=== PATIENT | male | born 1950 | race Caucasian/White ===

== ENCOUNTER 2021-05-18 20:55 | Inpatient (IN) | payer MEDICARE ==
[2021-05-18] MEDS ORDERED: Furosemide 40 MG/4 ML VIAL ONE (21:37)
[2021-05-18 21:40] LABS: #Basophils 0.1 10x3/uL (0.0-0.2); #Eosinphils 0.3 10x3/uL (0.0-0.5); #Monocytes 0.5 10x3/uL (0.0-1.1); %Eosinophils 3.5 % (0.0-6.0); %Lymphocytes 10.6 % (18.0-47.0); %Neutrophils 77.8 % (40.0-75.0); Hemoglobin 14.2 g/dL (13.5-17.5); Mean Corpuscular HGB CONC 31.1 g/dL (32.0-36.0); Mean Corpuscular Hemoglobin 25.4 pg (27.0-33.0); Mean Corpuscular Volume 81.9 fl (81.2-95.1); Mean Platelet Volume 9.5 fl (7.4-10.4); Platelet Count 168 10x3/uL (150-450); RBC Distribution Width 19.2 % (11.5-14.5); Red Blood Cell (RBC) Count 5.58 10x6/uL (4.32-5.72); White Blood Cell (WBC) Count 7.7 10x3/uL (3.5-10.5)
[2021-05-18 21:53] LABS: ALT (SGPT) 17 U/L (8-55); AST (SGOT) 15 U/L (5-34); Albumin 3.6 g/dL (3.4-4.8); Alkaline Phosphatase 120 U/L (40-110); Anion Gap 16 mmol/L (10-20); BUN (Urea Nitrogen) 25 mg/dL (8.4-25.7); Bilirubin, Total 0.8 mg/dL (0.2-1.2); Calc. Creatinine Clearance 0 mL/min (70-130); Calcium 8.8 mg/dL (7.8-10.44); Carbon Dioxide 28 mmol/L (23-31); Chloride 98 mmol/L (98-107); Globulin 3.2 g/dL (2.4-3.5); Glucose 217 mg/dL (80-115); Potassium 3.8 mmol/L (3.5-5.1); Protein, Total 6.8 g/dL (5.8-8.1); Sodium 138 mmol/L (136-145)
[2021-05-19] MEDS ORDERED: Dextrose 5% in Water 1,000 ML IV PRN (02:51)
[2021-05-19] MEDS ORDERED: HumaLOG 300 UNITS/3 ML VIAL SC PRN (02:51)
[2021-05-19] MEDS ORDERED: Dextrose 50% Abboject 50 ML SYRINGE SLOW IVP PRN (02:51)
[2021-05-19 03:16] LABS: #Basophils 0.1 10x3/uL (0.0-0.2); #Eosinphils 0.3 10x3/uL (0.0-0.5); #Monocytes 0.6 10x3/uL (0.0-1.1); %Basophils 1.3 % (0.0-2.0); %Eosinophils 4.6 % (0.0-6.0); %Lymphocytes 13.5 % (18.0-47.0); %Monocytes 8.4 % (0.0-10.0); %Neutrophils 71.9 % (40.0-75.0); Hemoglobin 13.5 g/dL (13.5-17.5); Mean Corpuscular HGB CONC 31.1 g/dL (32.0-36.0); Mean Corpuscular Hemoglobin 25.5 pg (27.0-33.0); Mean Corpuscular Volume 81.9 fl (81.2-95.1); Mean Platelet Volume 9.9 fl (7.4-10.4); Platelet Count 168 10x3/uL (150-450); RBC Distribution Width 18.8 % (11.5-14.5); White Blood Cell (WBC) Count 6.9 10x3/uL (3.5-10.5)
[2021-05-19 03:27] LABS: Troponin I 0.015 ng/mL (< 0.028)
[2021-05-19 03:28] LABS: Cardiac Risk 3.5 (Less than 4.5); Cholesterol 88 mg/dl (< 200 Desired); HDL Cholesterol 25 mg/dL (>60 Neg Risk); LDL Cholesterol, Calculated 47 mg/dL; Triglycerides 78 mg/dL (Less than 150)
[2021-05-19 04:12] VITALS: BMI 45.6
[2021-05-19] MEDS: Furosemide 40 MG/4 ML VIAL SLOW IVP SCH ×2 (05:50→14:03)
[2021-05-19] MEDS ORDERED: Apixaban 5 MG TAB PO SCH (09:00)
[2021-05-19] MEDS: Aspirin 81 mg Enteric Coated Tablet PO SCH (09:58)
[2021-05-19] MEDS: Spironolactone 25 MG TAB PO SCH (09:58)
[2021-05-19] MEDS: Carvedilol 3.125 MG TAB PO SCH ×2 (09:58→17:34)
[2021-05-19] MEDS: Lisinopril 20 MG TAB PO SCH (09:58)
[2021-05-19] MEDS: metFORMIN 500 MG TAB PO SCH ×3 (10:00→17:46)
[2021-05-19 12:34] LABS: Hemoglobin A1c 7.3 % (4.0-6.0)
[2021-05-19 16:03] LABS: SARS-CoV-2 PCR by NAA Not Detected (NotDetected)
[2021-05-19] MEDS: Atorvastatin Calcium 40 MG TAB PO SCH (21:18)
[2021-05-20 04:49] LABS: #Basophils 0.1 10x3/uL (0.0-0.2); #Eosinphils 0.5 10x3/uL (0.0-0.5); #Monocytes 0.6 10x3/uL (0.0-1.1); #Neutrophils 5.7 10x3/uL (1.5-8.4); %Eosinophils 5.7 % (0.0-6.0); %Lymphocytes 13.7 % (18.0-47.0); %Monocytes 6.9 % (0.0-10.0); %Neutrophils 72.2 % (40.0-75.0); Hemoglobin 13.5 g/dL (13.5-17.5); Mean Corpuscular HGB CONC 30.7 g/dL (32.0-36.0); Mean Corpuscular Hemoglobin 25.6 pg (27.0-33.0); Mean Corpuscular Volume 83.5 fl (81.2-95.1); Platelet Count 165 10x3/uL (150-450); Red Blood Cell (RBC) Count 5.27 10x6/uL (4.32-5.72); White Blood Cell (WBC) Count 7.9 10x3/uL (3.5-10.5)
[2021-05-20 04:55] LABS: Anion Gap 15 mmol/L (10-20); BUN (Urea Nitrogen) 21 mg/dL (8.4-25.7); Calc. Creatinine Clearance 125 mL/min (70-130); Calcium 8.7 mg/dL (7.8-10.44); Carbon Dioxide 28 mmol/L (23-31); Chloride 99 mmol/L (98-107); Glucose 135 mg/dL (80-115); Potassium 3.4 mmol/L (3.5-5.1); Sodium 139 mmol/L (136-145)
[2021-05-20] MEDS: Furosemide 40 MG/4 ML VIAL SLOW IVP SCH ×2 (06:52→15:02)
[2021-05-20] MEDS: Carvedilol 3.125 MG TAB PO SCH ×2 (08:15→17:04)
[2021-05-20] MEDS: Spironolactone 25 MG TAB PO SCH (08:15)
[2021-05-20] MEDS: Aspirin 81 mg Enteric Coated Tablet PO SCH (08:15)
[2021-05-20] MEDS: metFORMIN 500 MG TAB PO SCH (08:16)
[2021-05-20] MEDS: Lisinopril 20 MG TAB PO SCH (08:16)
[2021-05-20] MEDS ORDERED: Lidocaine 1% (PF) 30 ML VIAL ONE (12:28)
[2021-05-20] MEDS ORDERED: Heparin 10,000 UNITS/ 10 ML VIAL ONE (12:31)
[2021-05-20] MEDS ORDERED: Nitroglycerin 50 MG/250 ML BOT 0 ML ONE (12:31)
[2021-05-20] MEDS ORDERED: Adenosine 6 MG/2 ML VIAL ONE (12:31)
[2021-05-20] MEDS ORDERED: Sodium Chloride 0.9% 1,000 ML ONE (12:31)
[2021-05-20] MEDS ORDERED: Fentanyl 250 MCG/5 ML VIAL ONE (13:35)
[2021-05-20] MEDS ORDERED: Midazolam HCl 2 mg/2 ml Vial ONE (13:36)
[2021-05-20] MEDS ORDERED: Iopamidol 300 61% 50 ML VIAL FS ONE (14:49)
[2021-05-20] MEDS ORDERED: Iopamidol 300 61% 100 ML VIAL FS ONE (14:49)
[2021-05-20] MEDS ORDERED: Sodium Chloride 0.9% 200 ML IV PRN (15:21)
[2021-05-20] MEDS ORDERED: Acetaminophen/Codeine 30-300mg Tablet PO PRN ×2 (15:21)
[2021-05-20] MEDS: Atorvastatin Calcium 40 MG TAB PO SCH (20:40)
[2021-05-21 04:57] LABS: #Basophils 0.1 10x3/uL (0.0-0.2); #Eosinphils 0.4 10x3/uL (0.0-0.5); #Monocytes 0.6 10x3/uL (0.0-1.1); %Lymphocytes 14.8 % (18.0-47.0); %Monocytes 8.1 % (0.0-10.0); Mean Corpuscular HGB CONC 30.2 g/dL (32.0-36.0); Mean Corpuscular Hemoglobin 25.4 pg (27.0-33.0); Mean Corpuscular Volume 84.1 fl (81.2-95.1); Mean Platelet Volume 9.7 fl (7.4-10.4); Platelet Count 161 10x3/uL (150-450); RBC Distribution Width 18.9 % (11.5-14.5); Red Blood Cell (RBC) Count 5.52 10x6/uL (4.32-5.72)
[2021-05-21 05:13] LABS: Anion Gap 16 mmol/L (10-20); BUN (Urea Nitrogen) 20 mg/dL (8.4-25.7); Calc. Creatinine Clearance 138 mL/min (70-130); Calcium 8.7 mg/dL (7.8-10.44); Carbon Dioxide 27 mmol/L (23-31); Chloride 99 mmol/L (98-107); Glucose 175 mg/dL (80-115); Potassium 3.9 mmol/L (3.5-5.1); Sodium 138 mmol/L (136-145)
[2021-05-21] MEDS: Furosemide 40 MG/4 ML VIAL SLOW IVP SCH (05:52)
[2021-05-21] MEDS ORDERED: Empagliflozin 25 MG TAB PO SCH (09:00)
[2021-05-21] MEDS ORDERED: Ezetimibe 10 MG TAB PO SCH (09:00)
[2021-05-21] MEDS ORDERED: Alogliptin 6.25 MG TAB PO SCH (09:00)
[2021-05-21] MEDS ORDERED: Spironolactone 25 MG TAB PO SCH (09:45)
[2021-05-21] MEDS: Carvedilol 3.125 MG TAB PO SCH (09:45)
[2021-05-21] MEDS: Aspirin 81 mg Enteric Coated Tablet PO SCH (09:45)
[2021-05-21] MEDS: Spironolactone 25 MG TAB PO SCH ×3 (09:45→09:51)
[2021-05-21] MEDS ORDERED: Carvedilol 6.25 MG TAB PO SCH ×2 (09:45→17:00)
[2021-05-21] MEDS: Lisinopril 20 MG TAB PO SCH (09:46)
[2021-05-21 10:23] VITALS: BP 148/95; TEMP 97.3
[2021-05-21] MEDS ORDERED: Apixaban 5 MG TAB PO SCH ×2 (11:00→21:00)
[2021-05-21] MEDS ORDERED: Furosemide 40 MG TAB PO SCH (14:00)
[2021-05-21] MEDS ORDERED: Atorvastatin Calcium 40 MG TAB PO SCH (21:00)
== END 2021-05-21 12:20 | disposition home or self-care (01) | DRG 286 ==
LOC: CSHERS 20:55 → CSHTELE 05-19 03:52
PROVIDERS: ADMIT Family Medicine; ATTEND Internal Medicine
PROC: 4A023N7 Measurement of Cardiac Sampling and Pressure, Left Heart, Percutaneous Approach (ICD-10-PCS; principal; 2021-05-20)
PROC: B2111ZZ Fluoroscopy of Multiple Coronary Arteries using Low Osmolar Contrast (ICD-10-PCS; 2021-05-20)
PROC: B2151ZZ Fluoroscopy of Left Heart using Low Osmolar Contrast (ICD-10-PCS; 2021-05-20)
DX: I11.0 Hypertensive heart disease with heart failure (principal); I50.23 Acute on chronic systolic (congestive) heart failure; Z68.41 Body mass index [BMI] 40.0-44.9, adult; I45.2 Bifascicular block; T82.855A Stenosis of coronary artery stent, initial encounter; I25.10 Atherosclerotic heart disease of native coronary artery without angina pectoris; E11.9 Type 2 diabetes mellitus without complications; E66.01 Morbid (severe) obesity due to excess calories; Z96.652 Presence of left artificial knee joint; Z96.641 Presence of right artificial hip joint; E11.69 Type 2 diabetes mellitus with other specified complication; E78.00 Pure hypercholesterolemia, unspecified; G25.81 Restless legs syndrome; E78.2 Mixed hyperlipidemia; I25.119 Atherosclerotic heart disease of native coronary artery with unspecified angina pectoris; I73.9 Peripheral vascular disease, unspecified; Z20.822 Contact with and (suspected) exposure to COVID-19; Y83.8 Other surgical procedures as the cause of abnormal reaction of the patient, or of later complication, without mention of misadventure at the time of the procedure; I25.118 Atherosclerotic heart disease of native coronary artery with other forms of angina pectoris; Z95.5 Presence of coronary angioplasty implant and graft; Z90.49 Acquired absence of other specified parts of digestive tract; Z91.010 Allergy to peanuts
CPT/HCPCS: 36415; 36416; 71045; 80048; 80053; 80061; 83036; 83735; 83880; 84443; 84484; 85025; 93005; 93010; 93306; 93458; 93923; 94760; 96374; 99152; 99153; C1760; C1769; J0153; J1644; J1815; J1940; J2001; J2250; J3010; J7050; Q9967; U0003; U0005

== ENCOUNTER 2021-05-21 19:35 | Inpatient (IN) | payer MEDICARE ==
[2021-05-21 20:31] LABS: #Basophils 0.1 10x3/uL (0.0-0.2); #Eosinphils 0.4 10x3/uL (0.0-0.5); #Monocytes 0.7 10x3/uL (0.0-1.1); #Neutrophils 6.4 10x3/uL (1.5-8.4); %Basophils 1.2 % (0.0-2.0); %Eosinophils 4.9 % (0.0-6.0); %Lymphocytes 13.8 % (18.0-47.0); %Monocytes 7.4 % (0.0-10.0); %Neutrophils 72.3 % (40.0-75.0); Hemoglobin 14.4 g/dL (13.5-17.5); Mean Corpuscular Hemoglobin 25.5 pg (27.0-33.0); Mean Corpuscular Volume 82.3 fl (81.2-95.1); Mean Platelet Volume 9.5 fl (7.4-10.4); Platelet Count 183 10x3/uL (150-450); RBC Distribution Width 19.1 % (11.5-14.5); Red Blood Cell (RBC) Count 5.65 10x6/uL (4.32-5.72); White Blood Cell (WBC) Count 8.9 10x3/uL (3.5-10.5)
[2021-05-21] MEDS ORDERED: Furosemide 40 MG/4 ML VIAL ONE (20:37)
[2021-05-21 20:52] LABS: ALT (SGPT) 9 U/L (8-55); AST (SGOT) 12 U/L (5-34); Albumin 3.6 g/dL (3.4-4.8); Alkaline Phosphatase 121 U/L (40-110); Anion Gap 16 mmol/L (10-20); BUN (Urea Nitrogen) 20 mg/dL (8.4-25.7); Bilirubin, Total 1.4 mg/dL (0.2-1.2); CK (CPK) 41 U/L (30-200); Calc. Creatinine Clearance 0 mL/min (70-130); Calcium 9.4 mg/dL (7.8-10.44); Carbon Dioxide 30 mmol/L (23-31); Chloride 95 mmol/L (98-107); Globulin 3.7 g/dL (2.4-3.5); Glucose 149 mg/dL (80-115); Lipase 33 U/L (8-78); Potassium 3.7 mmol/L (3.5-5.1); Protein, Total 7.3 g/dL (5.8-8.1); Sodium 137 mmol/L (136-145)
[2021-05-21 22:12] LABS: Bilirubin Neg (Negative); Blood, Urine Negative (Negative); Clarity Clear (Clear); Glucose, Urine (Dipstick) >=1000 mg/dL (Negative); Ketone, Urine Negative (Negative); Leukocyte Negative (Negative); Nitrite Negative (Negative); Protein, Urine (Dipstick) 100 mg/dl (Neg-Trace); Urobilinogen Normal mg/dL (Less than 2)
[2021-05-21 22:28] LABS: Bacteria/HPF None Seen HPF (None Seen); RBC/HPF 0-3 HPF (0-3); Squamous Epithelial 0-3 HPF (0-3); WBC/HPF 0-3 HPF (0-3)
[2021-05-21] MEDS ORDERED: Aspirin Chewable 81 MG TAB ONE (22:42)
[2021-05-21] MEDS ORDERED: Nitroglycerin 2% Ointment 1 INCH/1 GM Packet ONE (22:42)
[2021-05-22] MEDS ORDERED: Rosuvastatin 20 MG TAB PO SCH (01:00)
[2021-05-22] MEDS ORDERED: Tamsulosin HCl 0.4 MG CAP PO SCH (01:00)
[2021-05-22] MEDS ORDERED: Amlodipine 5 MG TAB PO SCH (01:00)
[2021-05-22] MEDS ORDERED: Pramipexole Di-HCl 0.25 MG TAB PO SCH (01:00)
[2021-05-22 01:31] LABS: Magnesium 1.9 mg/dL (1.6-2.6)
[2021-05-22 01:36] LABS: Troponin I 0.011 ng/mL (< 0.028)
[2021-05-22 05:22] LABS: #Basophils 0.1 10x3/uL (0.0-0.2); #Eosinphils 0.5 10x3/uL (0.0-0.5); #Monocytes 0.5 10x3/uL (0.0-1.1); #Neutrophils 4.6 10x3/uL (1.5-8.4); %Basophils 1.2 % (0.0-2.0); %Eosinophils 7.6 % (0.0-6.0); %Lymphocytes 15.2 % (18.0-47.0); %Monocytes 7.9 % (0.0-10.0); %Neutrophils 67.5 % (40.0-75.0); Hemoglobin 13.6 g/dL (13.5-17.5); Mean Corpuscular HGB CONC 30.6 g/dL (32.0-36.0); Mean Corpuscular Hemoglobin 25.4 pg (27.0-33.0); Mean Corpuscular Volume 82.8 fl (81.2-95.1); Mean Platelet Volume 9.5 fl (7.4-10.4); Platelet Count 151 10x3/uL (150-450); RBC Distribution Width 18.9 % (11.5-14.5); Red Blood Cell (RBC) Count 5.36 10x6/uL (4.32-5.72); White Blood Cell (WBC) Count 6.8 10x3/uL (3.5-10.5)
[2021-05-22 05:38] LABS: Troponin I 0.012 ng/mL (< 0.028)
[2021-05-22] MEDS: Furosemide 40 MG/4 ML VIAL SLOW IVP SCH ×2 (06:29→14:58)
[2021-05-22] MEDS ORDERED: DULAGLUTIDE 1.5 MG/0.5 ML FS SCH (09:00)
[2021-05-22] MEDS: Empagliflozin 25 MG TAB PO SCH (10:26)
[2021-05-22] MEDS: Losartan Potassium 50 MG TAB PO SCH (10:26)
[2021-05-22] MEDS: Bupropion 150 MG XL TAB PO SCH (10:26)
[2021-05-22] MEDS: hydrALAZINE 25 MG TAB PO SCH ×3 (10:27→17:53)
[2021-05-22] MEDS: Clopidogrel Bisulfate 75 MG TAB PO SCH (10:28)
[2021-05-22] MEDS: Ezetimibe 10 MG TAB PO SCH (10:28)
[2021-05-22] MEDS: Carvedilol 25 MG TAB PO SCH ×2 (10:29→17:51)
[2021-05-22] MEDS: Pramipexole Di-HCl 0.25 MG TAB PO SCH ×2 (10:35→20:56)
[2021-05-22] MEDS ORDERED: Spironolactone 25 MG TAB PO SCH (10:45)
[2021-05-22] MEDS: Amlodipine 5 MG TAB PO SCH (20:54)
[2021-05-22] MEDS: Tamsulosin HCl 0.4 MG CAP PO SCH (20:54)
[2021-05-22] MEDS: Rosuvastatin 20 MG TAB PO SCH (20:56)
[2021-05-23 05:17] LABS: Anion Gap 14 mmol/L (10-20); BUN (Urea Nitrogen) 18 mg/dL (8.4-25.7); Calc. Creatinine Clearance 135 mL/min (70-130); Calcium 8.7 mg/dL (7.8-10.44); Carbon Dioxide 30 mmol/L (23-31); Chloride 97 mmol/L (98-107); Glucose 177 mg/dL (80-115); Potassium 3.4 mmol/L (3.5-5.1); Sodium 138 mmol/L (136-145)
[2021-05-23] MEDS: Furosemide 40 MG/4 ML VIAL SLOW IVP SCH ×2 (06:25→14:48)
[2021-05-23] MEDS: hydrALAZINE 25 MG TAB PO SCH ×3 (08:49→17:11)
[2021-05-23] MEDS: Pramipexole Di-HCl 0.25 MG TAB PO SCH ×2 (08:50→20:48)
[2021-05-23] MEDS: Ezetimibe 10 MG TAB PO SCH (08:51)
[2021-05-23] MEDS: Bupropion 150 MG XL TAB PO SCH (08:51)
[2021-05-23] MEDS: Carvedilol 25 MG TAB PO SCH ×2 (08:52→17:11)
[2021-05-23] MEDS: Clopidogrel Bisulfate 75 MG TAB PO SCH (08:52)
[2021-05-23] MEDS: Empagliflozin 25 MG TAB PO SCH (08:52)
[2021-05-23] MEDS: Losartan Potassium 50 MG TAB PO SCH (08:53)
[2021-05-23] MEDS: Spironolactone 25 MG TAB PO SCH (08:53)
[2021-05-23] MEDS ORDERED: Potassium Chloride 20 MEQ TAB PO SCH (10:30)
[2021-05-23] MEDS ORDERED: Apixaban 5 MG TAB PO SCH (11:00)
[2021-05-23] MEDS: Amlodipine 5 MG TAB PO SCH (20:48)
[2021-05-23] MEDS: Apixaban 5 MG TAB PO SCH (20:48)
[2021-05-23] MEDS: Amiodarone 200 MG TAB PO SCH (20:48)
[2021-05-23] MEDS: Rosuvastatin 20 MG TAB PO SCH (20:48)
[2021-05-23] MEDS: Tamsulosin HCl 0.4 MG CAP PO SCH (20:52)
[2021-05-24 05:09] LABS: Anion Gap 14 mmol/L (10-20); BUN (Urea Nitrogen) 15 mg/dL (8.4-25.7); Calc. Creatinine Clearance 115 mL/min (70-130); Calcium 8.8 mg/dL (7.8-10.44); Carbon Dioxide 32 mmol/L (23-31); Chloride 95 mmol/L (98-107); Glucose 170 mg/dL (80-115); Potassium 3.9 mmol/L (3.5-5.1); Sodium 137 mmol/L (136-145)
[2021-05-24] MEDS: Furosemide 40 MG/4 ML VIAL SLOW IVP SCH ×2 (06:24→14:17)
[2021-05-24] MEDS: Pramipexole Di-HCl 0.25 MG TAB PO SCH ×2 (09:25→20:51)
[2021-05-24] MEDS: Empagliflozin 25 MG TAB PO SCH (09:25)
[2021-05-24] MEDS: hydrALAZINE 25 MG TAB PO SCH ×3 (09:26→17:57)
[2021-05-24] MEDS: Bupropion 150 MG XL TAB PO SCH (09:27)
[2021-05-24] MEDS: Clopidogrel Bisulfate 75 MG TAB PO SCH (09:27)
[2021-05-24] MEDS: Apixaban 5 MG TAB PO SCH ×2 (09:27→20:50)
[2021-05-24] MEDS: Losartan Potassium 50 MG TAB PO SCH (09:28)
[2021-05-24] MEDS: Ezetimibe 10 MG TAB PO SCH (09:28)
[2021-05-24] MEDS: Carvedilol 25 MG TAB PO SCH ×2 (09:29→17:57)
[2021-05-24] MEDS: Spironolactone 25 MG TAB PO SCH (09:29)
[2021-05-24] MEDS: Amiodarone 200 MG TAB PO SCH ×2 (09:29→20:50)
[2021-05-24] MEDS ORDERED: Dextrose 50% Abboject 50 ML SYRINGE IVP PRN (18:00)
[2021-05-24] MEDS ORDERED: Dextrose 5% in Water 1,000 ML IV PRN (18:00)
[2021-05-24] MEDS: Acetaminophen 500 MG TAB PO SCH (20:49)
[2021-05-24] MEDS: Tamsulosin HCl 0.4 MG CAP PO SCH (20:50)
[2021-05-24] MEDS: Rosuvastatin 20 MG TAB PO SCH (20:50)
[2021-05-24] MEDS: Amlodipine 5 MG TAB PO SCH (20:50)
[2021-05-24] MEDS ORDERED: Lantus 1000 UNITS/10 ML VIAL SC SCH (21:00)
[2021-05-25] MEDS: Furosemide 40 MG/4 ML VIAL SLOW IVP SCH (06:06)
[2021-05-25 06:20] LABS: Anion Gap 19 mmol/L (10-20); BUN (Urea Nitrogen) 20 mg/dL (8.4-25.7); Calc. Creatinine Clearance 101 mL/min (70-130); Calcium 9.1 mg/dL (7.8-10.44); Carbon Dioxide 27 mmol/L (23-31); Chloride 93 mmol/L (98-107); Glucose 164 mg/dL (80-115); Sodium 135 mmol/L (136-145)
[2021-05-25 08:54] VITALS: BMI 43.1
[2021-05-25] MEDS: Acetaminophen 500 MG TAB PO SCH ×2 (09:47→14:12)
[2021-05-25] MEDS: Bupropion 150 MG XL TAB PO SCH (09:47)
[2021-05-25] MEDS: Amiodarone 200 MG TAB PO SCH (09:47)
[2021-05-25] MEDS: Empagliflozin 25 MG TAB PO SCH (09:49)
[2021-05-25] MEDS: Apixaban 5 MG TAB PO SCH (09:49)
[2021-05-25] MEDS: Losartan Potassium 50 MG TAB PO SCH (09:49)
[2021-05-25] MEDS: Pramipexole Di-HCl 0.25 MG TAB PO SCH (09:49)
[2021-05-25] MEDS: Ezetimibe 10 MG TAB PO SCH (09:50)
[2021-05-25] MEDS: Spironolactone 25 MG TAB PO SCH (09:50)
[2021-05-25] MEDS: hydrALAZINE 25 MG TAB PO SCH ×2 (09:50→12:11)
[2021-05-25] MEDS: Carvedilol 25 MG TAB PO SCH (09:51)
[2021-05-25] MEDS: Clopidogrel Bisulfate 75 MG TAB PO SCH (09:51)
[2021-05-25 10:59] LABS: Thyroid Stimulating Hormone 3.183 uIU/mL (0.35-4.94)
[2021-05-25 12:32] VITALS: TEMP 97.4
[2021-05-25] MEDS ORDERED: Loperamide HCl 2 MG CAP PO PRN (13:52)
[2021-05-25] MEDS ORDERED: Furosemide 20 MG TAB PO SCH (14:00)
[2021-05-25] MEDS ORDERED: Loperamide HCl 2 MG CAP PO SCH (14:00)
[2021-05-25] MEDS ORDERED: Apixaban 2.5 MG TAB PO SCH (21:00)
[2021-05-25 21:05] VITALS: BP 112/63
== END 2021-05-25 17:10 | DRG 291 ==
LOC: CSHERS 19:35 → CSHTELE 05-22 00:31
PROVIDERS: ADMIT Family Medicine; ATTEND Hospitalist
PROC: 0T9B70Z Drainage of Bladder with Drainage Device, Via Natural or Artificial Opening (ICD-10-PCS; principal; 2021-05-22)
DX: I11.0 Hypertensive heart disease with heart failure (principal); I50.43 Acute on chronic combined systolic (congestive) and diastolic (congestive) heart failure; J96.01 Acute respiratory failure with hypoxia; I48.92 Unspecified atrial flutter; Z68.41 Body mass index [BMI] 40.0-44.9, adult; I45.2 Bifascicular block; I25.10 Atherosclerotic heart disease of native coronary artery without angina pectoris; E11.51 Type 2 diabetes mellitus with diabetic peripheral angiopathy without gangrene; E66.01 Morbid (severe) obesity due to excess calories; E78.5 Hyperlipidemia, unspecified; N40.1 Benign prostatic hyperplasia with lower urinary tract symptoms; R33.8 Other retention of urine; Z96.652 Presence of left artificial knee joint; Z96.641 Presence of right artificial hip joint; E78.2 Mixed hyperlipidemia; I48.0 Paroxysmal atrial fibrillation; R31.9 Hematuria, unspecified; E11.59 Type 2 diabetes mellitus with other circulatory complications; Z90.49 Acquired absence of other specified parts of digestive tract; Z98.890 Other specified postprocedural states; Z88.8 Allergy status to other drugs, medicaments and biological substances; Z95.5 Presence of coronary angioplasty implant and graft; Z79.899 Other long term (current) drug therapy; Z79.01 Long term (current) use of anticoagulants
CPT/HCPCS: 36415; 36416; 51702; 71045; 80048; 81003; 81015; 82550; 83690; 83735; 83880; 84436; 84443; 84484; 85025; 87086; 93005; 93010; 94760; 96374; J1815; J1940

== ENCOUNTER 2021-06-14 15:15 | Inpatient (IN) | payer MEDICARE ==
[~2021-06-14 15:15] MED LIST: Iopamidol 300 61% 100 ML VIAL FS ONE
[2021-06-14 16:13] LABS: ALT (SGPT) 28 U/L (8-55); AST (SGOT) 19 U/L (5-34); Albumin 3.5 g/dL (3.4-4.8); Alkaline Phosphatase 153 U/L (40-110); Anion Gap 13 mmol/L (10-20); BUN (Urea Nitrogen) 21 mg/dL (8.4-25.7); Calc. Creatinine Clearance 0 mL/min (70-130); Carbon Dioxide 26 mmol/L (23-31); Chloride 98 mmol/L (98-107); Globulin 3.6 g/dL (2.4-3.5); Glucose 170 mg/dL (80-115); Potassium 3.5 mmol/L (3.5-5.1); Protein, Total 7.1 g/dL (5.8-8.1); Sodium 133 mmol/L (136-145)
[2021-06-14 16:23] LABS: #Basophils 0.1 10x3/uL (0.0-0.2); #Eosinphils 0.2 10x3/uL (0.0-0.5); #Monocytes 0.5 10x3/uL (0.0-1.1); #Neutrophils 7.1 10x3/uL (1.5-8.4); %Basophils 0.8 % (0.0-2.0); %Eosinophils 2.2 % (0.0-6.0); %Lymphocytes 8.6 % (18.0-47.0); %Monocytes 5.6 % (0.0-10.0); %Neutrophils 82.5 % (40.0-75.0); Hemoglobin 14.2 g/dL (13.5-17.5); Mean Corpuscular HGB CONC 31.8 g/dL (32.0-36.0); Mean Corpuscular Hemoglobin 25.8 pg (27.0-33.0); Mean Corpuscular Volume 80.9 fl (81.2-95.1); Mean Platelet Volume 9.9 fl (7.4-10.4); Platelet Count 144 10x3/uL (150-450); Red Blood Cell (RBC) Count 5.51 10x6/uL (4.32-5.72); White Blood Cell (WBC) Count 8.6 10x3/uL (3.5-10.5)
[2021-06-14 19:17] LABS: Bilirubin Neg (Negative); Blood, Urine 25 (Negative); Clarity Cloudy (Clear); Glucose, Urine (Dipstick) >=1000 mg/dL (Negative); Ketone, Urine Negative (Negative); Leukocyte 500 (Negative); Nitrite Negative (Negative); Protein, Urine (Dipstick) 30 mg/dl (Neg-Trace); Urobilinogen Normal mg/dL (Less than 2)
[2021-06-14 19:46] LABS: Bacteria/HPF 4+ HPF (None Seen); Mucous/LPF 1+ LPF (<2+); RBC/HPF 0-3 HPF (0-3); Squamous Epithelial 0-3 HPF (0-3); WBC/HPF Greater than 50 HPF (0-3); White Blood Cell Cast 0-3 LPF (None Seen)
[2021-06-14] MEDS ORDERED: cefTRIAXone\\ROCEPHIN 1 GM VIAL ONE (20:27)
[2021-06-14 21:58] LABS: Magnesium 1.4 mg/dL (1.6-2.6)
[2021-06-14 22:05] LABS: SARS-CoV-2 NAA Rapid Test Not Detected (NotDetected)
[2021-06-14] MEDS ORDERED: Carvedilol 25 MG TAB PO SCH (22:45)
[2021-06-14] MEDS ORDERED: Lantus 1000 UNITS/10 ML VIAL SC SCH (22:45)
[2021-06-14] MEDS ORDERED: Potassium Chloride 20 MEQ TAB PO SCH (22:45)
[2021-06-14] MEDS ORDERED: VANCOMYCIN 2 GRAM/400 ML BAG 2 GM in Premix Bag 1 BAG IVPB SCH (23:00)
[2021-06-14] MEDS ORDERED: Meropenem 1 GM in Sodium Chloride 0.9% 100 ML IVPB SCH (23:00)
[2021-06-15 05:01] LABS: Anion Gap 14 mmol/L (10-20); BUN (Urea Nitrogen) 20 mg/dL (8.4-25.7); Calc. Creatinine Clearance 140 mL/min (70-130); Calcium 8.6 mg/dL (7.8-10.44); Carbon Dioxide 24 mmol/L (23-31); Chloride 103 mmol/L (98-107); Glucose 150 mg/dL (80-115); Magnesium 1.5 mg/dL (1.6-2.6); Sodium 138 mmol/L (136-145)
[2021-06-15 05:06] LABS: #Basophils 0.1 10x3/uL (0.0-0.2); #Eosinphils 0.3 10x3/uL (0.0-0.5); #Monocytes 0.2 10x3/uL (0.0-1.1); #Neutrophils 5.1 10x3/uL (1.5-8.4); %Basophils 0.8 % (0.0-2.0); %Eosinophils 3.8 % (0.0-6.0); %Lymphocytes 12.3 % (18.0-47.0); %Monocytes 3.7 % (0.0-10.0); %Neutrophils 78.9 % (40.0-75.0); Hemoglobin 13.4 g/dL (13.5-17.5); Mean Corpuscular HGB CONC 32.2 g/dL (32.0-36.0); Mean Corpuscular Hemoglobin 25.6 pg (27.0-33.0); Mean Corpuscular Volume 79.5 fl (81.2-95.1); Mean Platelet Volume 10.4 fl (7.4-10.4); Platelet Count 135 10x3/uL (150-450); RBC Distribution Width 17.6 % (11.5-14.5); Red Blood Cell (RBC) Count 5.23 10x6/uL (4.32-5.72); White Blood Cell (WBC) Count 6.5 10x3/uL (3.5-10.5)
[2021-06-15] MEDS ORDERED: Potassium Chloride 20 MEQ TAB PO SCH (08:00)
[2021-06-15] MEDS: Meropenem 1 GM in Sodium Chloride 0.9% 100 ML IVPB SCH ×3 (08:27→23:37)
[2021-06-15] MEDS: Losartan Potassium 50 MG TAB PO SCH (08:35)
[2021-06-15] MEDS: Magnesium 2 GM/50 ML(in water) 2 GM in Premix Bag 1 BAG IVPB SCH ×2 (08:35→09:21)
[2021-06-15] MEDS: hydrALAZINE 25 MG TAB PO SCH ×3 (08:36→21:11)
[2021-06-15] MEDS: Pramipexole Di-HCl 0.25 MG TAB PO SCH ×2 (08:39→21:12)
[2021-06-15] MEDS: Spironolactone 25 MG TAB PO SCH (08:41)
[2021-06-15] MEDS: Bupropion 150 MG XL TAB PO SCH (08:41)
[2021-06-15] MEDS: Carvedilol 25 MG TAB PO SCH ×2 (08:42→16:25)
[2021-06-15] MEDS: Ezetimibe 10 MG TAB PO SCH (08:42)
[2021-06-15] MEDS: Amlodipine 5 MG TAB PO SCH (08:43)
[2021-06-15] MEDS: HumaLOG 300 UNITS/3 ML VIAL SC SCH ×3 (08:43→16:25)
[2021-06-15] MEDS: Amiodarone 200 MG TAB PO SCH (08:43)
[2021-06-15] MEDS ORDERED: Apixaban 5 MG TAB PO SCH (09:00)
[2021-06-15] MEDS ORDERED: Clopidogrel Bisulfate 75 MG TAB PO SCH (09:00)
[2021-06-15] MEDS: Furosemide 20 MG TAB PO SCH ×2 (09:20→15:08)
[2021-06-15] MEDS: Vancomycin 1.5 GRAM/300 ML BAG 1.5 GM in Premix Bag 1 BAG IVPB SCH ×2 (12:14→23:36)
[2021-06-15] MEDS: Acetaminophen 325 MG TAB PO PRN ×2 (12:15→16:24)
[2021-06-15] MEDS ORDERED: Dextrose 5% in Water 1,000 ML IV PRN (12:28)
[2021-06-15] MEDS: Empagliflozin 10 MG TAB PO SCH (12:28)
[2021-06-15] MEDS ORDERED: HumaLOG 300 UNITS/3 ML VIAL SC PRN ×2 (12:28)
[2021-06-15] MEDS ORDERED: Dextrose 50% Abboject 50 ML SYRINGE SLOW IVP PRN (12:28)
[2021-06-15] MEDS: HYDROcodone/Acetaminophen 5/325 mg Tablet PO PRN (18:07)
[2021-06-15] MEDS: Rosuvastatin 20 MG TAB PO SCH (21:11)
[2021-06-15] MEDS: Tamsulosin HCl 0.4 MG CAP PO SCH (21:13)
[2021-06-15] MEDS: Lantus 1000 UNITS/10 ML VIAL SC SCH (21:13)
[2021-06-15] MEDS: Enoxaparin Sodium 60 MG/0.6 ML SYRINGE SC SCH (21:14)
[2021-06-15] MEDS: Enoxaparin Sodium 80 MG/0.8 ML SYRINGE SC SCH (21:14)
[2021-06-16 04:44] LABS: #Basophils 0.1 10x3/uL (0.0-0.2); #Eosinphils 0.5 10x3/uL (0.0-0.5); #Monocytes 0.3 10x3/uL (0.0-1.1); %Basophils 0.9 % (0.0-2.0); %Eosinophils 8.4 % (0.0-6.0); %Monocytes 5.9 % (0.0-10.0); %Neutrophils 72.1 % (40.0-75.0); Hemoglobin 13.1 g/dL (13.5-17.5); Mean Corpuscular HGB CONC 32.3 g/dL (32.0-36.0); Mean Corpuscular Volume 80.7 fl (81.2-95.1); Mean Platelet Volume 10.1 fl (7.4-10.4); Platelet Count 130 10x3/uL (150-450); RBC Distribution Width 17.7 % (11.5-14.5); Red Blood Cell (RBC) Count 5.03 10x6/uL (4.32-5.72); White Blood Cell (WBC) Count 5.6 10x3/uL (3.5-10.5)
[2021-06-16 04:58] LABS: ALT (SGPT) 25 U/L (8-55); AST (SGOT) 18 U/L (5-34); Albumin 3.1 g/dL (3.4-4.8); Alkaline Phosphatase 135 U/L (40-110); Anion Gap 15 mmol/L (10-20); BUN (Urea Nitrogen) 23 mg/dL (8.4-25.7); Bilirubin, Total 0.6 mg/dL (0.2-1.2); CRP (Inflammatory) 2.04 mg/dL (= or < 0.5); Calc. Creatinine Clearance 127 mL/min (70-130); Calcium 8.6 mg/dL (7.8-10.44); Carbon Dioxide 22 mmol/L (23-31); Cardiac Risk 3.2 (Less than 4.5); Chloride 106 mmol/L (98-107); Cholesterol 105 mg/dl (< 200 Desired); Globulin 3.1 g/dL (2.4-3.5); Glucose 111 mg/dL (80-115); HDL Cholesterol 33 mg/dL (>60 Neg Risk); LDL Cholesterol, Calculated 60 mg/dL; Magnesium 1.9 mg/dL (1.6-2.6); Protein, Total 6.2 g/dL (5.8-8.1); Sodium 140 mmol/L (136-145); Triglycerides 62 mg/dL (Less than 150)
[2021-06-16] MEDS: Meropenem 1 GM in Sodium Chloride 0.9% 100 ML IVPB SCH ×3 (06:20→23:09)
[2021-06-16] MEDS ORDERED: Potassium Chloride 20 MEQ TAB PO SCH (09:15)
[2021-06-16] MEDS: hydrALAZINE 25 MG TAB PO SCH ×3 (10:15→21:20)
[2021-06-16] MEDS: Enoxaparin Sodium 60 MG/0.6 ML SYRINGE SC SCH ×2 (10:16→21:19)
[2021-06-16] MEDS: HYDROcodone/Acetaminophen 5/325 mg Tablet PO PRN ×3 (10:17→18:33)
[2021-06-16] MEDS: Empagliflozin 10 MG TAB PO SCH (10:19)
[2021-06-16] MEDS: Pramipexole Di-HCl 0.25 MG TAB PO SCH ×2 (10:20→21:22)
[2021-06-16] MEDS: Ezetimibe 10 MG TAB PO SCH (10:20)
[2021-06-16] MEDS: Furosemide 20 MG TAB PO SCH ×2 (10:22→13:54)
[2021-06-16] MEDS: Carvedilol 25 MG TAB PO SCH ×2 (10:22→18:34)
[2021-06-16] MEDS: Amiodarone 200 MG TAB PO SCH (10:23)
[2021-06-16] MEDS: Losartan Potassium 50 MG TAB PO SCH (10:23)
[2021-06-16] MEDS: Amlodipine 5 MG TAB PO SCH (10:24)
[2021-06-16] MEDS: Bupropion 150 MG XL TAB PO SCH (10:24)
[2021-06-16] MEDS: HumaLOG 300 UNITS/3 ML VIAL SC SCH ×3 (10:25→18:33)
[2021-06-16] MEDS: Spironolactone 25 MG TAB PO SCH (10:25)
[2021-06-16 10:29] LABS: Vancomycin, Trough 29.8 ug/mL
[2021-06-16] MEDS: Vancomycin 1.5 GRAM/300 ML BAG 1.5 GM in Premix Bag 1 BAG IVPB SCH (11:42)
[2021-06-16 13:27] LABS: Hemoglobin A1c 7.2 % (4.0-6.0)
[2021-06-16] MEDS: Enoxaparin Sodium 80 MG/0.8 ML SYRINGE SC SCH ×2 (13:56→21:20)
[2021-06-16] MEDS: Lantus 1000 UNITS/10 ML VIAL SC SCH (21:21)
[2021-06-16] MEDS: Tamsulosin HCl 0.4 MG CAP PO SCH (21:21)
[2021-06-16] MEDS: Rosuvastatin 20 MG TAB PO SCH (21:22)
[2021-06-17] MEDS: HYDROcodone/Acetaminophen 5/325 mg Tablet PO PRN ×3 (01:47→20:32)
[2021-06-17 02:14] LABS: #Basophils 0.1 10x3/uL (0.0-0.2); #Eosinphils 0.6 10x3/uL (0.0-0.5); #Monocytes 0.3 10x3/uL (0.0-1.1); #Neutrophils 3.6 10x3/uL (1.5-8.4); %Basophils 1.2 % (0.0-2.0); %Eosinophils 10.9 % (0.0-6.0); %Lymphocytes 12.5 % (18.0-47.0); %Neutrophils 69.2 % (40.0-75.0); Hemoglobin 13.3 g/dL (13.5-17.5); Mean Corpuscular HGB CONC 31.7 g/dL (32.0-36.0); Mean Corpuscular Hemoglobin 25.7 pg (27.0-33.0); Mean Platelet Volume 9.7 fl (7.4-10.4); Platelet Count 123 10x3/uL (150-450); RBC Distribution Width 17.8 % (11.5-14.5); Red Blood Cell (RBC) Count 5.17 10x6/uL (4.32-5.72); White Blood Cell (WBC) Count 5.1 10x3/uL (3.5-10.5)
[2021-06-17 02:34] LABS: ALT (SGPT) 34 U/L (8-55); AST (SGOT) 26 U/L (5-34); Albumin 3.3 g/dL (3.4-4.8); Alkaline Phosphatase 137 U/L (40-110); Anion Gap 13 mmol/L (10-20); BUN (Urea Nitrogen) 27 mg/dL (8.4-25.7); Bilirubin, Total 0.5 mg/dL (0.2-1.2); Calc. Creatinine Clearance 116 mL/min (70-130); Calcium 8.5 mg/dL (7.8-10.44); Carbon Dioxide 21 mmol/L (23-31); Chloride 106 mmol/L (98-107); Globulin 3.2 g/dL (2.4-3.5); Glucose 173 mg/dL (80-115); Magnesium 1.7 mg/dL (1.6-2.6); Potassium 3.4 mmol/L (3.5-5.1); Protein, Total 6.5 g/dL (5.8-8.1); Sodium 137 mmol/L (136-145)
[2021-06-17] MEDS ORDERED: Potassium Chloride 20 MEQ TAB PO SCH (06:15)
[2021-06-17] MEDS: Meropenem 1 GM in Sodium Chloride 0.9% 100 ML IVPB SCH (06:50)
[2021-06-17] MEDS: Ezetimibe 10 MG TAB PO SCH (08:35)
[2021-06-17] MEDS: Amiodarone 200 MG TAB PO SCH (08:35)
[2021-06-17] MEDS: Bupropion 150 MG XL TAB PO SCH (08:35)
[2021-06-17] MEDS: Pramipexole Di-HCl 0.25 MG TAB PO SCH ×2 (08:35→20:25)
[2021-06-17] MEDS: hydrALAZINE 25 MG TAB PO SCH ×3 (08:35→20:24)
[2021-06-17] MEDS: Potassium Chloride 20 MEQ in Premix Bag 1 BAG IVPB SCH ×2 (08:35→08:36)
[2021-06-17] MEDS: Carvedilol 25 MG TAB PO SCH (08:35)
[2021-06-17] MEDS: Losartan Potassium 50 MG TAB PO SCH (08:36)
[2021-06-17] MEDS: Amlodipine 5 MG TAB PO SCH (08:36)
[2021-06-17] MEDS: Empagliflozin 10 MG TAB PO SCH (08:36)
[2021-06-17] MEDS: Spironolactone 25 MG TAB PO SCH (08:36)
[2021-06-17] MEDS: Furosemide 20 MG TAB PO SCH ×2 (08:36→14:24)
[2021-06-17] MEDS: HumaLOG 300 UNITS/3 ML VIAL SC SCH ×3 (08:37→16:19)
[2021-06-17] MEDS: Enoxaparin Sodium 60 MG/0.6 ML SYRINGE SC SCH ×2 (08:37→20:26)
[2021-06-17] MEDS: Enoxaparin Sodium 80 MG/0.8 ML SYRINGE SC SCH ×2 (08:38→20:26)
[2021-06-17] MEDS ORDERED: Ciprofloxacin 500 MG TAB PO SCH (12:30)
[2021-06-17] MEDS: Carvedilol 12.5 MG TAB PO SCH (16:16)
[2021-06-17] MEDS: Ciprofloxacin 500 MG TAB PO SCH (20:23)
[2021-06-17] MEDS: Rosuvastatin 20 MG TAB PO SCH (20:24)
[2021-06-17] MEDS: Tamsulosin HCl 0.4 MG CAP PO SCH (20:25)
[2021-06-17] MEDS: Lantus 1000 UNITS/10 ML VIAL SC SCH (20:27)
[2021-06-18 04:29] LABS: #Basophils 0.1 10x3/uL (0.0-0.2); #Eosinphils 0.8 10x3/uL (0.0-0.5); #Monocytes 0.5 10x3/uL (0.0-1.1); #Neutrophils 3.9 10x3/uL (1.5-8.4); %Eosinophils 12.8 % (0.0-6.0); %Lymphocytes 13.8 % (18.0-47.0); %Monocytes 8.8 % (0.0-10.0); %Neutrophils 63.3 % (40.0-75.0); Hemoglobin 13.6 g/dL (13.5-17.5); Mean Corpuscular Hemoglobin 25.5 pg (27.0-33.0); Mean Corpuscular Volume 79.6 fl (81.2-95.1); Mean Platelet Volume 10.4 fl (7.4-10.4); Platelet Count 136 10x3/uL (150-450); RBC Distribution Width 17.6 % (11.5-14.5); Red Blood Cell (RBC) Count 5.34 10x6/uL (4.32-5.72); White Blood Cell (WBC) Count 6.2 10x3/uL (3.5-10.5)
[2021-06-18 04:54] LABS: ALT (SGPT) 47 U/L (8-55); AST (SGOT) 40 U/L (5-34); Albumin 3.3 g/dL (3.4-4.8); Alkaline Phosphatase 140 U/L (40-110); Anion Gap 14 mmol/L (10-20); BUN (Urea Nitrogen) 28 mg/dL (8.4-25.7); Bilirubin, Total 0.5 mg/dL (0.2-1.2); Calc. Creatinine Clearance 129 mL/min (70-130); Calcium 8.9 mg/dL (7.8-10.44); Carbon Dioxide 23 mmol/L (23-31); Chloride 105 mmol/L (98-107); Globulin 3.4 g/dL (2.4-3.5); Glucose 147 mg/dL (80-115); Magnesium 1.8 mg/dL (1.6-2.6); Potassium 3.4 mmol/L (3.5-5.1); Protein, Total 6.7 g/dL (5.8-8.1); Sodium 139 mmol/L (136-145)
[2021-06-18] MEDS: Ciprofloxacin 500 MG TAB PO SCH ×2 (06:17→20:42)
[2021-06-18] MEDS: hydrALAZINE 25 MG TAB PO SCH ×3 (08:24→20:42)
[2021-06-18] MEDS: Pramipexole Di-HCl 0.25 MG TAB PO SCH ×2 (08:25→20:42)
[2021-06-18] MEDS: HYDROcodone/Acetaminophen 5/325 mg Tablet PO PRN (08:25)
[2021-06-18] MEDS: Losartan Potassium 50 MG TAB PO SCH (08:25)
[2021-06-18] MEDS: Spironolactone 25 MG TAB PO SCH (08:25)
[2021-06-18] MEDS: Bupropion 150 MG XL TAB PO SCH (08:25)
[2021-06-18] MEDS: Ezetimibe 10 MG TAB PO SCH (08:25)
[2021-06-18] MEDS: Amiodarone 200 MG TAB PO SCH (08:25)
[2021-06-18] MEDS: Furosemide 20 MG TAB PO SCH ×2 (08:25→16:43)
[2021-06-18] MEDS: Carvedilol 12.5 MG TAB PO SCH ×2 (08:25→16:44)
[2021-06-18] MEDS: Amlodipine 5 MG TAB PO SCH (08:26)
[2021-06-18] MEDS: Empagliflozin 10 MG TAB PO SCH (08:26)
[2021-06-18] MEDS: HumaLOG 300 UNITS/3 ML VIAL SC SCH ×3 (08:27→16:44)
[2021-06-18] MEDS: Enoxaparin Sodium 80 MG/0.8 ML SYRINGE SC SCH ×2 (08:27→20:45)
[2021-06-18] MEDS: Enoxaparin Sodium 60 MG/0.6 ML SYRINGE SC SCH ×2 (08:27→20:45)
[2021-06-18] MEDS ORDERED: Potassium Chloride 20 MEQ TAB PO SCH (10:30)
[2021-06-18] MEDS: Rosuvastatin 20 MG TAB PO SCH (20:42)
[2021-06-18] MEDS: Lantus 1000 UNITS/10 ML VIAL SC SCH (20:43)
[2021-06-18] MEDS: Tamsulosin HCl 0.4 MG CAP PO SCH (20:43)
[2021-06-19] MEDS: Ciprofloxacin 500 MG TAB PO SCH ×2 (06:13→20:54)
[2021-06-19 07:52] LABS: #Basophils 0.1 10x3/uL (0.0-0.2); #Eosinphils 0.6 10x3/uL (0.0-0.5); #Monocytes 0.5 10x3/uL (0.0-1.1); #Neutrophils 4.4 10x3/uL (1.5-8.4); %Basophils 0.9 % (0.0-2.0); %Eosinophils 9.2 % (0.0-6.0); %Lymphocytes 17.2 % (18.0-47.0); %Monocytes 7.4 % (0.0-10.0); %Neutrophils 65.2 % (40.0-75.0); Hemoglobin 13.8 g/dL (13.5-17.5); Mean Corpuscular HGB CONC 31.5 g/dL (32.0-36.0); Mean Corpuscular Hemoglobin 25.5 pg (27.0-33.0); Mean Corpuscular Volume 80.8 fl (81.2-95.1); Mean Platelet Volume 9.9 fl (7.4-10.4); Platelet Count 136 10x3/uL (150-450); RBC Distribution Width 17.4 % (11.5-14.5); Red Blood Cell (RBC) Count 5.42 10x6/uL (4.32-5.72); White Blood Cell (WBC) Count 6.8 10x3/uL (3.5-10.5)
[2021-06-19 08:04] LABS: ALT (SGPT) 83 U/L (8-55); AST (SGOT) 76 U/L (5-34); Albumin 3.4 g/dL (3.4-4.8); Alkaline Phosphatase 142 U/L (40-110); Anion Gap 18 mmol/L (10-20); BUN (Urea Nitrogen) 28 mg/dL (8.4-25.7); Bilirubin, Total 0.7 mg/dL (0.2-1.2); Calc. Creatinine Clearance 125 mL/min (70-130); Calcium 8.9 mg/dL (7.8-10.44); Carbon Dioxide 21 mmol/L (23-31); Chloride 103 mmol/L (98-107); Globulin 3.3 g/dL (2.4-3.5); Glucose 134 mg/dL (80-115); Magnesium 1.9 mg/dL (1.6-2.6); Potassium 3.4 mmol/L (3.5-5.1); Protein, Total 6.7 g/dL (5.8-8.1); Sodium 139 mmol/L (136-145)
[2021-06-19] MEDS: Empagliflozin 10 MG TAB PO SCH (08:57)
[2021-06-19] MEDS: HYDROcodone/Acetaminophen 5/325 mg Tablet PO PRN ×2 (08:57→20:57)
[2021-06-19] MEDS: Amiodarone 200 MG TAB PO SCH (08:57)
[2021-06-19] MEDS: Carvedilol 12.5 MG TAB PO SCH ×2 (08:57→16:36)
[2021-06-19] MEDS: Spironolactone 25 MG TAB PO SCH (08:58)
[2021-06-19] MEDS: Bupropion 150 MG XL TAB PO SCH (08:58)
[2021-06-19] MEDS: Furosemide 20 MG TAB PO SCH ×2 (08:58→16:36)
[2021-06-19] MEDS: Ezetimibe 10 MG TAB PO SCH (08:58)
[2021-06-19] MEDS: Losartan Potassium 50 MG TAB PO SCH (08:59)
[2021-06-19] MEDS: hydrALAZINE 25 MG TAB PO SCH ×3 (08:59→20:54)
[2021-06-19] MEDS: Amlodipine 5 MG TAB PO SCH (08:59)
[2021-06-19] MEDS: Pramipexole Di-HCl 0.25 MG TAB PO SCH ×2 (08:59→20:54)
[2021-06-19] MEDS: HumaLOG 300 UNITS/3 ML VIAL SC SCH ×3 (09:00→16:38)
[2021-06-19] MEDS: Enoxaparin Sodium 80 MG/0.8 ML SYRINGE SC SCH (09:00)
[2021-06-19] MEDS: Enoxaparin Sodium 60 MG/0.6 ML SYRINGE SC SCH (09:00)
[2021-06-19] MEDS ORDERED: Potassium Chloride 20 MEQ TAB PO SCH (17:30)
[2021-06-19] MEDS: Rosuvastatin 20 MG TAB PO SCH (20:54)
[2021-06-19] MEDS: Apixaban 5 MG TAB PO SCH (20:54)
[2021-06-19] MEDS: Lantus 1000 UNITS/10 ML VIAL SC SCH (20:55)
[2021-06-19] MEDS: Tamsulosin HCl 0.4 MG CAP PO SCH (21:00)
[2021-06-20 05:47] LABS: #Eosinphils 0.7 10x3/uL (0.0-0.5); #Monocytes 0.5 10x3/uL (0.0-1.1); #Neutrophils 4.1 10x3/uL (1.5-8.4); %Basophils 0.6 % (0.0-2.0); %Eosinophils 10.8 % (0.0-6.0); %Lymphocytes 18.9 % (18.0-47.0); %Monocytes 7.5 % (0.0-10.0); %Neutrophils 61.9 % (40.0-75.0); Hemoglobin 13.4 g/dL (13.5-17.5); Mean Corpuscular HGB CONC 31.6 g/dL (32.0-36.0); Mean Corpuscular Hemoglobin 25.4 pg (27.0-33.0); Mean Corpuscular Volume 80.3 fl (81.2-95.1); Mean Platelet Volume 9.9 fl (7.4-10.4); Platelet Count 134 10x3/uL (150-450); RBC Distribution Width 17.3 % (11.5-14.5); Red Blood Cell (RBC) Count 5.28 10x6/uL (4.32-5.72); White Blood Cell (WBC) Count 6.7 10x3/uL (3.5-10.5)
[2021-06-20 06:07] LABS: ALT (SGPT) 83 U/L (8-55); AST (SGOT) 60 U/L (5-34); Albumin 3.3 g/dL (3.4-4.8); Alkaline Phosphatase 134 U/L (40-110); Anion Gap 17 mmol/L (10-20); BUN (Urea Nitrogen) 33 mg/dL (8.4-25.7); Bilirubin, Total 0.7 mg/dL (0.2-1.2); Calc. Creatinine Clearance 116 mL/min (70-130); Calcium 8.7 mg/dL (7.8-10.44); Carbon Dioxide 22 mmol/L (23-31); Chloride 102 mmol/L (98-107); Globulin 3.1 g/dL (2.4-3.5); Glucose 119 mg/dL (80-115); Magnesium 1.8 mg/dL (1.6-2.6); Potassium 3.5 mmol/L (3.5-5.1); Protein, Total 6.4 g/dL (5.8-8.1); Sodium 137 mmol/L (136-145)
[2021-06-20] MEDS: Ciprofloxacin 500 MG TAB PO SCH ×2 (06:12→20:48)
[2021-06-20] MEDS: hydrALAZINE 25 MG TAB PO SCH ×3 (08:23→20:48)
[2021-06-20] MEDS: Losartan Potassium 50 MG TAB PO SCH (08:23)
[2021-06-20] MEDS: Amlodipine 5 MG TAB PO SCH (08:24)
[2021-06-20] MEDS: Apixaban 5 MG TAB PO SCH ×2 (08:24→20:55)
[2021-06-20] MEDS: Spironolactone 25 MG TAB PO SCH (08:24)
[2021-06-20] MEDS: Empagliflozin 10 MG TAB PO SCH (08:24)
[2021-06-20] MEDS: Amiodarone 200 MG TAB PO SCH (08:24)
[2021-06-20] MEDS: Carvedilol 12.5 MG TAB PO SCH ×2 (08:24→17:18)
[2021-06-20] MEDS: Bupropion 150 MG XL TAB PO SCH (08:24)
[2021-06-20] MEDS: Ezetimibe 10 MG TAB PO SCH (08:24)
[2021-06-20] MEDS: Pramipexole Di-HCl 0.25 MG TAB PO SCH ×2 (08:25→20:49)
[2021-06-20] MEDS: Furosemide 20 MG TAB PO SCH ×2 (08:25→17:17)
[2021-06-20] MEDS: HYDROcodone/Acetaminophen 5/325 mg Tablet PO PRN ×2 (08:25→20:50)
[2021-06-20] MEDS: HumaLOG 300 UNITS/3 ML VIAL SC SCH ×3 (08:26→17:31)
[2021-06-20 13:56] VITALS: BMI 45.0
[2021-06-20] MEDS: Tamsulosin HCl 0.4 MG CAP PO SCH (20:48)
[2021-06-20] MEDS: Rosuvastatin 20 MG TAB PO SCH (20:49)
[2021-06-20] MEDS: Lantus 1000 UNITS/10 ML VIAL SC SCH (20:52)
[2021-06-21 05:58] LABS: #Basophils 0.1 10x3/uL (0.0-0.2); #Eosinphils 0.7 10x3/uL (0.0-0.5); #Monocytes 0.5 10x3/uL (0.0-1.1); %Basophils 0.8 % (0.0-2.0); %Eosinophils 10.2 % (0.0-6.0); %Lymphocytes 19.5 % (18.0-47.0); %Monocytes 7.6 % (0.0-10.0); %Neutrophils 61.6 % (40.0-75.0); Hemoglobin 13.3 g/dL (13.5-17.5); Mean Corpuscular HGB CONC 31.5 g/dL (32.0-36.0); Mean Corpuscular Hemoglobin 25.6 pg (27.0-33.0); Mean Corpuscular Volume 81.3 fl (81.2-95.1); Mean Platelet Volume 10.4 fl (7.4-10.4); Platelet Count 145 10x3/uL (150-450); RBC Distribution Width 17.4 % (11.5-14.5); Red Blood Cell (RBC) Count 5.19 10x6/uL (4.32-5.72); White Blood Cell (WBC) Count 6.5 10x3/uL (3.5-10.5)
[2021-06-21 06:09] LABS: ALT (SGPT) 71 U/L (8-55); AST (SGOT) 44 U/L (5-34); Albumin 3.2 g/dL (3.4-4.8); Alkaline Phosphatase 128 U/L (40-110); Anion Gap 17 mmol/L (10-20); BUN (Urea Nitrogen) 37 mg/dL (8.4-25.7); Bilirubin, Total 0.5 mg/dL (0.2-1.2); Calc. Creatinine Clearance 95 mL/min (70-130); Calcium 8.6 mg/dL (7.8-10.44); Carbon Dioxide 20 mmol/L (23-31); Chloride 103 mmol/L (98-107); Globulin 3.2 g/dL (2.4-3.5); Glucose 172 mg/dL (80-115); Potassium 3.8 mmol/L (3.5-5.1); Protein, Total 6.4 g/dL (5.8-8.1); Sodium 136 mmol/L (136-145)
[2021-06-21] MEDS: Ezetimibe 10 MG TAB PO SCH (08:41)
[2021-06-21] MEDS: Amiodarone 200 MG TAB PO SCH (08:41)
[2021-06-21] MEDS: Spironolactone 25 MG TAB PO SCH (08:41)
[2021-06-21] MEDS: Apixaban 5 MG TAB PO SCH (08:41)
[2021-06-21] MEDS: Bupropion 150 MG XL TAB PO SCH (08:41)
[2021-06-21] MEDS: Pramipexole Di-HCl 0.25 MG TAB PO SCH (08:42)
[2021-06-21] MEDS: Amlodipine 5 MG TAB PO SCH (08:42)
[2021-06-21] MEDS: Losartan Potassium 50 MG TAB PO SCH (08:42)
[2021-06-21] MEDS: hydrALAZINE 25 MG TAB PO SCH ×2 (08:42→16:15)
[2021-06-21] MEDS: Carvedilol 12.5 MG TAB PO SCH ×2 (08:42→16:15)
[2021-06-21] MEDS: Furosemide 20 MG TAB PO SCH ×2 (08:42→16:15)
[2021-06-21] MEDS: HYDROcodone/Acetaminophen 5/325 mg Tablet PO PRN (08:42)
[2021-06-21] MEDS: Empagliflozin 10 MG TAB PO SCH (08:45)
[2021-06-21] MEDS: HumaLOG 300 UNITS/3 ML VIAL SC SCH ×3 (09:42→16:47)
[2021-06-21 16:40] VITALS: BP 101/55; TEMP 97.1
[2021-06-24 12:12] LABS: Routine O & P Final report (.)
== END 2021-06-21 16:29 | DRG 690 ==
LOC: CSHERS 15:15 → INTOOBSV 22:00 → CSHTELE 22:00 → OBSVTOIN 06-15 22:41
PROVIDERS: ADMIT Family Medicine; ATTEND Hospitalist
DX: N30.80 Other cystitis without hematuria (principal); I50.42 Chronic combined systolic (congestive) and diastolic (congestive) heart failure; I13.0 Hypertensive heart and chronic kidney disease with heart failure and stage 1 through stage 4 chronic kidney disease, or unspecified chronic kidney disease; I45.2 Bifascicular block; K92.2 Gastrointestinal hemorrhage, unspecified; Z68.42 Body mass index [BMI] 45.0-49.9, adult; A08.4 Viral intestinal infection, unspecified; I48.0 Paroxysmal atrial fibrillation; I25.10 Atherosclerotic heart disease of native coronary artery without angina pectoris; E66.01 Morbid (severe) obesity due to excess calories; N40.1 Benign prostatic hyperplasia with lower urinary tract symptoms; E11.22 Type 2 diabetes mellitus with diabetic chronic kidney disease; N18.2 Chronic kidney disease, stage 2 (mild); E87.6 Hypokalemia; E83.42 Hypomagnesemia; F41.9 Anxiety disorder, unspecified; E03.8 Other specified hypothyroidism; E78.5 Hyperlipidemia, unspecified; R53.81 Other malaise; B96.20 Unspecified Escherichia coli [E. coli] as the cause of diseases classified elsewhere; B96.4 Proteus (mirabilis) (morganii) as the cause of diseases classified elsewhere; Z96.652 Presence of left artificial knee joint; Z20.822 Contact with and (suspected) exposure to COVID-19; Z96.641 Presence of right artificial hip joint; Z74.09 Other reduced mobility; Z60.2 Problems related to living alone; Z79.4 Long term (current) use of insulin; Z79.84 Long term (current) use of oral hypoglycemic drugs; Z79.01 Long term (current) use of anticoagulants; Z88.8 Allergy status to other drugs, medicaments and biological substances; Z95.5 Presence of coronary angioplasty implant and graft; Z79.899 Other long term (current) drug therapy; Z98.890 Other specified postprocedural states; Z72.89 Other problems related to lifestyle; Z82.49 Family history of ischemic heart disease and other diseases of the circulatory system; Z79.02 Long term (current) use of antithrombotics/antiplatelets; Z79.82 Long term (current) use of aspirin
CPT/HCPCS: 36415; 36416; 74177; 80048; 80053; 80061; 80202; 81003; 81015; 82274; 82977; 83036; 83735; 84439; 84443; 85025; 85520; 85652; 86140; 86403; 87045; 87046; 87077; 87081; 87086; 87177; 87186; 87324; 87427; 87449; 93005; 93010; 94760; 96372; 96374; 96375; 96376; G0378; J0696; J1650; J1815; J2185; J3370; J3475; J3480; J3490; Q9967; U0002

== ENCOUNTER 2021-07-08 22:14 | Inpatient (IN) | payer MEDICARE ==
[2021-07-08] MEDS ORDERED: Fentanyl 100 MCG/2 ML VIAL ONE (23:22)
[2021-07-08] MEDS ORDERED: Ondansetron PF 4 MG/2 ML Vial ONE (23:22)
[2021-07-08 23:44] LABS: #Basophils 0.1 10x3/uL (0.0-0.2); #Eosinphils 0.4 10x3/uL (0.0-0.5); #Monocytes 0.7 10x3/uL (0.0-1.1); #Neutrophils 6.6 10x3/uL (1.5-8.4); %Basophils 0.7 % (0.0-2.0); %Eosinophils 3.9 % (0.0-6.0); %Lymphocytes 15.5 % (18.0-47.0); %Monocytes 7.4 % (0.0-10.0); %Neutrophils 72.2 % (40.0-75.0); Hemoglobin 14.3 g/dL (13.5-17.5); Mean Corpuscular HGB CONC 33.1 g/dL (32.0-36.0); Mean Corpuscular Hemoglobin 26.3 pg (27.0-33.0); Mean Corpuscular Volume 79.4 fl (81.2-95.1); Mean Platelet Volume 9.6 fl (7.4-10.4); Platelet Count 165 10x3/uL (150-450); RBC Distribution Width 18.5 % (11.5-14.5); Red Blood Cell (RBC) Count 5.44 10x6/uL (4.32-5.72); White Blood Cell (WBC) Count 9.1 10x3/uL (3.5-10.5)
[2021-07-08 23:57] LABS: PTT 28.8 sec (22.0-33.0); Prothrombin Time 11.2 sec (9.5-12.1)
[2021-07-09] LABS: ALT (SGPT) 18 U/L (8-55); AST (SGOT) 10 U/L (5-34); Albumin 3.7 g/dL (3.4-4.8); Alkaline Phosphatase 134 U/L (40-110); Anion Gap 15 mmol/L (10-20); BUN (Urea Nitrogen) 66 mg/dL (8.4-25.7); Bilirubin, Total 0.5 mg/dL (0.2-1.2); CK (CPK) 43 U/L (30-200); Calc. Creatinine Clearance 0 mL/min (70-130); Calcium 8.9 mg/dL (7.8-10.44); Carbon Dioxide 23 mmol/L (23-31); Chloride 96 mmol/L (98-107); Globulin 3.5 g/dL (2.4-3.5); Glucose 218 mg/dL (80-115); Protein, Total 7.2 g/dL (5.8-8.1); Sodium 129 mmol/L (136-145)
[2021-07-09] MEDS ORDERED: Fentanyl 100 MCG/2 ML VIAL ONE ×2 (01:25→04:48)
[2021-07-09] MEDS ORDERED: HYDROcodone/Acetaminophen 5/325 mg Tablet ONE ×2 (06:06→07:20)
[2021-07-09] MEDS ORDERED: Acetaminophen 325 MG TAB PO PRN (12:25)
[2021-07-09] MEDS ORDERED: Ondansetron ODT 4 MG TAB PO PRN (12:25)
[2021-07-09] MEDS ORDERED: Ondansetron PF 4 MG/2 ML Vial IVP PRN (12:25)
[2021-07-09] MEDS ORDERED: Fluconazole 100 MG TAB PO SCH (12:30)
[2021-07-09] MEDS: HumaLOG 300 UNITS/3 ML VIAL SC PRN ×2 (12:30→17:40)
[2021-07-09] MEDS ORDERED: HumaLOG 300 UNITS/3 ML VIAL SC PRN (12:36)
[2021-07-09] MEDS ORDERED: Dextrose 5% in Water 1,000 ML IV PRN (12:36)
[2021-07-09] MEDS ORDERED: Dextrose 50% Abboject 50 ML SYRINGE SLOW IVP PRN (12:36)
[2021-07-09 14:26] VITALS: BMI 41.5
[2021-07-09] MEDS: Furosemide 40 MG TAB PO SCH (15:07)
[2021-07-09] MEDS: Ampicillin/Sulbactam 3 GM in Sodium Chloride 0.9% 100 ML IVPB SCH ×2 (15:08→17:37)
[2021-07-09] MEDS: hydrALAZINE 25 MG TAB PO SCH (17:38)
[2021-07-09] MEDS ORDERED: Apixaban 5 MG TAB PO SCH (21:00)
[2021-07-09] MEDS: Amlodipine 5 MG TAB PO SCH (23:58)
[2021-07-09] MEDS: traMADol HCl 50 MG TAB PO PRN (23:59)
[2021-07-10] MEDS: Ampicillin/Sulbactam 3 GM in Sodium Chloride 0.9% 100 ML IVPB SCH ×6 (00:01→23:21)
[2021-07-10] MEDS: Lantus 1000 UNITS/10 ML VIAL SC SCH ×2 (00:02→23:20)
[2021-07-10 05:32] LABS: #Basophils 0.1 10x3/uL (0.0-0.2); #Eosinphils 0.5 10x3/uL (0.0-0.5); #Monocytes 0.5 10x3/uL (0.0-1.1); #Neutrophils 5.3 10x3/uL (1.5-8.4); %Basophils 1.2 % (0.0-2.0); %Lymphocytes 15.9 % (18.0-47.0); %Monocytes 6.8 % (0.0-10.0); %Neutrophils 69.7 % (40.0-75.0); Hemoglobin 14.2 g/dL (13.5-17.5); Mean Corpuscular HGB CONC 33.2 g/dL (32.0-36.0); Mean Corpuscular Hemoglobin 26.6 pg (27.0-33.0); Mean Corpuscular Volume 80.1 fl (81.2-95.1); Platelet Count 166 10x3/uL (150-450); RBC Distribution Width 18.8 % (11.5-14.5); Red Blood Cell (RBC) Count 5.34 10x6/uL (4.32-5.72); White Blood Cell (WBC) Count 7.6 10x3/uL (3.5-10.5)
[2021-07-10 05:39] LABS: Anion Gap 15 mmol/L (10-20); BUN (Urea Nitrogen) 54 mg/dL (8.4-25.7); Calc. Creatinine Clearance 100 mL/min (70-130); Calcium 8.6 mg/dL (7.8-10.44); Carbon Dioxide 23 mmol/L (23-31); Chloride 102 mmol/L (98-107); Glucose 219 mg/dL (80-115); Magnesium 2.2 mg/dL (1.6-2.6); Potassium 4.9 mmol/L (3.5-5.1); Sodium 135 mmol/L (136-145)
[2021-07-10] MEDS: HumaLOG 300 UNITS/3 ML VIAL SC PRN (06:34)
[2021-07-10] MEDS ORDERED: POTASSIUM CHLORIDE 20 MEQ PO SCH (09:00)
[2021-07-10] MEDS ORDERED: Clopidogrel Bisulfate 75 MG TAB PO SCH (09:00)
[2021-07-10] MEDS: hydrALAZINE 25 MG TAB PO SCH ×3 (09:13→17:00)
[2021-07-10] MEDS: Losartan Potassium 50 MG TAB PO SCH (09:14)
[2021-07-10] MEDS: Apixaban 5 MG TAB PO SCH (09:14)
[2021-07-10] MEDS: Furosemide 40 MG TAB PO SCH ×2 (09:17→17:06)
[2021-07-10] MEDS: HumaLOG 300 UNITS/3 ML VIAL SC SCH ×3 (09:18→17:07)
[2021-07-10] MEDS: Carvedilol 12.5 MG TAB PO SCH ×2 (09:18→17:06)
[2021-07-10] MEDS: Pramipexole Di-HCl 0.25 MG TAB PO SCH ×2 (09:18→23:23)
[2021-07-10] MEDS: Amiodarone 200 MG TAB PO SCH (09:18)
[2021-07-10] MEDS: Bupropion 150 MG XL TAB PO SCH (09:18)
[2021-07-10] MEDS: traMADol HCl 50 MG TAB PO PRN ×2 (10:48→17:07)
[2021-07-10] MEDS: Clopidogrel Bisulfate 75 MG TAB PO SCH (10:49)
[2021-07-10 16:05] LABS: SARS-CoV-2 PCR by NAA Not Detected (NotDetected)
[2021-07-10] MEDS: Amlodipine 5 MG TAB PO SCH (23:22)
[2021-07-10] MEDS: Tamsulosin HCl 0.4 MG CAP PO SCH (23:22)
[2021-07-10] MEDS: Rosuvastatin 20 MG TAB PO SCH (23:22)
[2021-07-11] MEDS: traMADol HCl 50 MG TAB PO PRN ×2 (00:26→20:58)
[2021-07-11 04:52] LABS: #Basophils 0.1 10x3/uL (0.0-0.2); #Eosinphils 0.5 10x3/uL (0.0-0.5); #Monocytes 0.5 10x3/uL (0.0-1.1); #Neutrophils 5.8 10x3/uL (1.5-8.4); %Basophils 0.7 % (0.0-2.0); %Eosinophils 6.2 % (0.0-6.0); %Lymphocytes 14.4 % (18.0-47.0); %Monocytes 6.2 % (0.0-10.0); %Neutrophils 72.1 % (40.0-75.0); Hemoglobin 13.7 g/dL (13.5-17.5); Mean Corpuscular HGB CONC 31.9 g/dL (32.0-36.0); Mean Corpuscular Volume 81.6 fl (81.2-95.1); Platelet Count 143 10x3/uL (150-450); RBC Distribution Width 18.7 % (11.5-14.5); Red Blood Cell (RBC) Count 5.26 10x6/uL (4.32-5.72); White Blood Cell (WBC) Count 8.1 10x3/uL (3.5-10.5)
[2021-07-11 05:09] LABS: Anion Gap 15 mmol/L (10-20); BUN (Urea Nitrogen) 47 mg/dL (8.4-25.7); Calc. Creatinine Clearance 100 mL/min (70-130); Calcium 8.7 mg/dL (7.8-10.44); Carbon Dioxide 23 mmol/L (23-31); Chloride 101 mmol/L (98-107); Glucose 183 mg/dL (80-115); Potassium 4.8 mmol/L (3.5-5.1); Sodium 134 mmol/L (136-145)
[2021-07-11] MEDS: Carvedilol 12.5 MG TAB PO SCH ×3 (08:29→18:04)
[2021-07-11] MEDS: Furosemide 40 MG TAB PO SCH ×2 (08:30→13:49)
[2021-07-11] MEDS: Amiodarone 200 MG TAB PO SCH (08:30)
[2021-07-11] MEDS: Apixaban 5 MG TAB PO SCH (08:30)
[2021-07-11] MEDS: Bupropion 150 MG XL TAB PO SCH (08:30)
[2021-07-11] MEDS: Losartan Potassium 50 MG TAB PO SCH (08:30)
[2021-07-11] MEDS: Pramipexole Di-HCl 0.25 MG TAB PO SCH ×2 (08:30→20:57)
[2021-07-11] MEDS: HumaLOG 300 UNITS/3 ML VIAL SC SCH ×3 (08:31→17:54)
[2021-07-11] MEDS: Empagliflozin 10 MG TAB PO SCH (08:31)
[2021-07-11] MEDS: Ampicillin/Sulbactam 3 GM in Sodium Chloride 0.9% 100 ML IVPB SCH ×4 (08:31→20:56)
[2021-07-11] MEDS: Clopidogrel Bisulfate 75 MG TAB PO SCH (08:41)
[2021-07-11] MEDS: HumaLOG 300 UNITS/3 ML VIAL SC PRN (17:55)
[2021-07-11] MEDS: Lantus 1000 UNITS/10 ML VIAL SC SCH (20:57)
[2021-07-11] MEDS: Tamsulosin HCl 0.4 MG CAP PO SCH (20:57)
[2021-07-11] MEDS: Amlodipine 5 MG TAB PO SCH (20:57)
[2021-07-11] MEDS: Rosuvastatin 20 MG TAB PO SCH (20:58)
[2021-07-12] MEDS: Losartan Potassium 50 MG TAB PO SCH (08:30)
[2021-07-12] MEDS: Bupropion 150 MG XL TAB PO SCH (09:39)
[2021-07-12] MEDS: Apixaban 5 MG TAB PO SCH (09:39)
[2021-07-12] MEDS: Amiodarone 200 MG TAB PO SCH (09:39)
[2021-07-12] MEDS: Furosemide 40 MG TAB PO SCH (09:39)
[2021-07-12] MEDS: Clopidogrel Bisulfate 75 MG TAB PO SCH (09:39)
[2021-07-12] MEDS: Empagliflozin 10 MG TAB PO SCH (09:39)
[2021-07-12] MEDS: Carvedilol 12.5 MG TAB PO SCH (09:39)
[2021-07-12] MEDS: Pramipexole Di-HCl 0.25 MG TAB PO SCH (09:39)
[2021-07-12] MEDS: HumaLOG 300 UNITS/3 ML VIAL SC SCH ×2 (09:40→13:59)
[2021-07-12] MEDS: Ampicillin/Sulbactam 3 GM in Sodium Chloride 0.9% 100 ML IVPB SCH ×2 (09:40→13:00)
[2021-07-12 12:41] VITALS: BP 99/46; TEMP 97
== END 2021-07-12 15:10 | disposition home health service (06) | DRG 683 ==
LOC: CSHERS 22:14 → CSHTELE 07-09 11:05 → OBSVTOIN 07-11 10:40
PROVIDERS: ADMIT Internal Medicine; ATTEND Internal Medicine
DX: N17.9 Acute kidney failure, unspecified (principal); E87.1 Hypo-osmolality and hyponatremia; I50.42 Chronic combined systolic (congestive) and diastolic (congestive) heart failure; Z68.41 Body mass index [BMI] 40.0-44.9, adult; Z20.822 Contact with and (suspected) exposure to COVID-19; I25.10 Atherosclerotic heart disease of native coronary artery without angina pectoris; E66.01 Morbid (severe) obesity due to excess calories; M79.3 Panniculitis, unspecified; I48.0 Paroxysmal atrial fibrillation; R19.7 Diarrhea, unspecified; N40.0 Benign prostatic hyperplasia without lower urinary tract symptoms; Z96.643 Presence of artificial hip joint, bilateral; Z60.2 Problems related to living alone; I11.0 Hypertensive heart disease with heart failure; S70.02XA Contusion of left hip, initial encounter; W18.30XA Fall on same level, unspecified, initial encounter; S43.401A Unspecified sprain of right shoulder joint, initial encounter; E78.5 Hyperlipidemia, unspecified; E11.9 Type 2 diabetes mellitus without complications; Z79.899 Other long term (current) drug therapy; Z79.02 Long term (current) use of antithrombotics/antiplatelets; Z79.4 Long term (current) use of insulin; Z95.5 Presence of coronary angioplasty implant and graft; Z90.89 Acquired absence of other organs; Z91.010 Allergy to peanuts; Y92.129 Unspecified place in nursing home as the place of occurrence of the external cause
CPT/HCPCS: 36415; 36416; 80048; 80053; 82550; 83605; 83735; 85025; 85610; 85652; 85730; 86140; 93005; 94760; 96375; 96376; G0378; J0295; J1815; J2405; J3010; J3490; U0003; U0005

== ENCOUNTER 2021-08-19 22:49 | Emergency (ER) | payer MEDICARE ==
[2021-08-19 23:19] LABS: #Basophils 0.1 10x3/uL (0.0-0.2); #Eosinphils 0.5 10x3/uL (0.0-0.5); #Monocytes 0.6 10x3/uL (0.0-1.1); #Neutrophils 5.6 10x3/uL (1.5-8.4); %Basophils 0.8 % (0.0-2.0); %Eosinophils 6.3 % (0.0-6.0); %Lymphocytes 13.3 % (18.0-47.0); %Monocytes 7.3 % (0.0-10.0); %Neutrophils 71.9 % (40.0-75.0); Hemoglobin 12.2 g/dL (13.5-17.5); Mean Corpuscular HGB CONC 33.3 g/dL (32.0-36.0); Mean Corpuscular Hemoglobin 27.1 pg (27.0-33.0); Mean Corpuscular Volume 81.3 fl (81.2-95.1); Mean Platelet Volume 8.6 fl (7.4-10.4); Platelet Count 172 10x3/uL (150-450); RBC Distribution Width 18.2 % (11.5-14.5); White Blood Cell (WBC) Count 7.8 10x3/uL (3.5-10.5)
[2021-08-19 23:31] LABS: ALT (SGPT) 14 U/L (8-55); AST (SGOT) 12 U/L (5-34); Albumin 3.5 g/dL (3.4-4.8); Alkaline Phosphatase 136 U/L (40-110); Anion Gap 17 mmol/L (10-20); BUN (Urea Nitrogen) 38 mg/dL (8.4-25.7); Bilirubin, Total 0.4 mg/dL (0.2-1.2); Calc. Creatinine Clearance 0 mL/min (70-130); Calcium 8.7 mg/dL (7.8-10.44); Carbon Dioxide 23 mmol/L (23-31); Chloride 97 mmol/L (98-107); Estimated GFR 43; Globulin 3.3 g/dL (2.4-3.5); Glucose 177 mg/dL (80-115); Magnesium 2.1 mg/dL (1.6-2.6); Potassium 5.2 mmol/L (3.5-5.1); Protein, Total 6.8 g/dL (5.8-8.1); Sodium 132 mmol/L (136-145)
== END 2021-08-20 02:35 | disposition home or self-care (01) ==
LOC: CSHERS 22:49
DX: I89.0 Lymphedema, not elsewhere classified (principal); E11.9 Type 2 diabetes mellitus without complications; I48.91 Unspecified atrial fibrillation; I11.0 Hypertensive heart disease with heart failure; I50.9 Heart failure, unspecified; Z79.4 Long term (current) use of insulin; Z79.84 Long term (current) use of oral hypoglycemic drugs; Z79.899 Other long term (current) drug therapy
CPT/HCPCS: 80053; 83735; 85025; 99283

== ENCOUNTER 2021-10-13 00:33 | Inpatient (IN) | payer MEDICARE, OTHER ==
[2021-10-13 02:20] LABS: #Eosinphils 0.1 10x3/uL (0.0-0.5); #Monocytes 0.7 10x3/uL (0.0-1.1); #Neutrophils 6.7 10x3/uL (1.5-8.4); %Basophils 0.5 % (0.0-2.0); %Eosinophils 0.8 % (0.0-6.0); %Lymphocytes 10.1 % (18.0-47.0); %Monocytes 8.7 % (0.0-10.0); %Neutrophils 78.5 % (40.0-75.0); Hemoglobin 12.9 g/dL (13.5-17.5); Mean Corpuscular HGB CONC 32.5 g/dL (32.0-36.0); Mean Corpuscular Hemoglobin 27.3 pg (27.0-33.0); Mean Corpuscular Volume 84.1 fl (81.2-95.1); Mean Platelet Volume 10.9 fl (7.4-10.4); Platelet Count 174 10x3/uL (150-450); RBC Distribution Width 18.5 % (11.5-14.5); Red Blood Cell (RBC) Count 4.72 10x6/uL (4.32-5.72); White Blood Cell (WBC) Count 8.6 10x3/uL (3.5-10.5)
[2021-10-13 02:37] LABS: ALT (SGPT) 73 U/L (8-55); AST (SGOT) 43 U/L (5-34); Albumin 2.8 g/dL (3.4-4.8); Alkaline Phosphatase 274 U/L (40-110); BUN (Urea Nitrogen) 24 mg/dL (8.4-25.7); Bilirubin, Total 1.4 mg/dL (0.2-1.2); Calc. Creatinine Clearance 0 mL/min (70-130); Calcium 7.5 mg/dL (7.8-10.44); Chloride 118 mmol/L (98-107); Estimated GFR 33; Globulin 2.6 g/dL (2.4-3.5); Glucose 143 mg/dL (83-110); Potassium 3.1 mmol/L (3.5-5.1); Protein, Total 5.4 g/dL (5.8-8.1); Sodium 140 mmol/L (136-145)
[2021-10-13 02:49] LABS: Carbon Dioxide Less than 8 mmol/L (23-31)
[2021-10-13] MEDS ORDERED: Magnesium 2 GM/50 ML BAG (IN WATER) ONE (02:55)
[2021-10-13] MEDS ORDERED: Potassium Chloride 20 MEQ TAB ONE (02:55)
[2021-10-13] MEDS ORDERED: Cefepime 2 GM VIAL ONE (02:55)
[2021-10-13 03:48] LABS: Bilirubin Neg (Negative); Blood, Urine 25 (Negative); Clarity Cloudy (Clear); Glucose, Urine (Dipstick) >=1000 mg/dL (Negative); Ketone, Urine 15 mg/dL (Negative); Leukocyte 25 (Negative); Nitrite Negative (Negative); Protein, Urine (Dipstick) 30 mg/dl (Neg-Trace); Urobilinogen Normal mg/dL (Less than 2)
[2021-10-13 03:57] LABS: RBC/HPF 0-3 HPF (0-3); Squamous Epithelial 0-3 HPF (0-3); WBC/HPF 0-3 HPF (0-3)
[2021-10-13 03:58] LABS: Bacteria/HPF None Seen HPF (None Seen); Renal Epithelial 0-3 HPF (None Seen)
[2021-10-13 04:10] LABS: Magnesium 1.7 mg/dL (1.6-2.6); Phosphorus 2.2 mg/dL (2.3-4.7)
[2021-10-13] MEDS ORDERED: Ondansetron ODT 4 MG TAB PO PRN (05:31)
[2021-10-13] MEDS ORDERED: INSULIN REGULAR IN 0.9 % NACL 100 UNIT in Premix Bag 1 BAG IVPB SCH (05:45)
[2021-10-13] MEDS: NS 0.9% w/ 20 MEQ KCL 1,000 ML/1,000 ML BAG IV SCH ×2 (06:06→21:18)
[2021-10-13 06:14] LABS: SARS-CoV-2 NAA Rapid Test Not Detected (NotDetected)
[2021-10-13 06:16] LABS: Lactic Acid 1.5 mmol/L (0.5-2.2)
[2021-10-13 06:22] LABS: Anion Gap 16 mmol/L (10-20); BUN (Urea Nitrogen) 23 mg/dL (8.4-25.7); Calc. Creatinine Clearance 63 mL/min (70-130); Calcium 7.4 mg/dL (7.8-10.44); Chloride 118 mmol/L (98-107); Estimated GFR 36; Glucose 121 mg/dL (83-110); Magnesium 2.1 mg/dL (1.6-2.6); Phosphorus 2.3 mg/dL (2.3-4.7); Potassium 3.3 mmol/L (3.5-5.1); Sodium 140 mmol/L (136-145)
[2021-10-13 06:26] LABS: Carbon Dioxide 9 mmol/L (23-31)
[2021-10-13 07:19] LABS: Actual Bicarbonate (HCO3v) 11 mEq/L (22-28); Base Excess -17.5 mEq/L (-2.0 to +3.0); Calcium, Ionized (venous) 1.11 mmol/L (1.16-1.32); Chloride (VBG) 114 mmol/L (98-106); Potassium (VBG) 3.17 mmol/L (3.70-5.30); Puncture Site Other Site; RapidComm Collect By CBN; Sodium 146.5 mmol/L (133-146)
[2021-10-13] MEDS: D5 LR w/20 mEq KCL 1,000 ML IV SCH ×5 (08:17→22:52)
[2021-10-13] MEDS: Clopidogrel Bisulfate 75 MG TAB PO SCH (09:25)
[2021-10-13] MEDS: Pantoprazole 40 MG VIAL IVP SCH (09:25)
[2021-10-13] MEDS: Bupropion 150 MG XL TAB PO SCH (09:25)
[2021-10-13] MEDS: Amiodarone 200 MG TAB PO SCH (09:25)
[2021-10-13] MEDS: Apixaban 5 MG TAB PO SCH ×3 (09:25→21:44)
[2021-10-13] MEDS: Tamsulosin HCl 0.4 MG CAP PO SCH (09:26)
[2021-10-13] MEDS: Ondansetron PF 4 MG/2 ML Vial IVP PRN ×2 (09:54→19:50)
[2021-10-13 10:21] LABS: Anion Gap 12 mmol/L (10-20); BUN (Urea Nitrogen) 22 mg/dL (8.4-25.7); Calc. Creatinine Clearance 68 mL/min (70-130); Calcium 7.4 mg/dL (7.8-10.44); Carbon Dioxide 13 mmol/L (23-31); Chloride 119 mmol/L (98-107); Estimated GFR 39; Glucose 98 mg/dL (83-110); Phosphorus 2.1 mg/dL (2.3-4.7); Potassium 3.2 mmol/L (3.5-5.1); Sodium 141 mmol/L (136-145)
[2021-10-13] MEDS ORDERED: Potassium Chloride 20 MEQ TAB PO SCH (12:00)
[2021-10-13] MEDS: Carvedilol 12.5 MG TAB PO SCH ×2 (13:33→19:52)
[2021-10-13 14:05] LABS: Anion Gap 11 mmol/L (10-20); BUN (Urea Nitrogen) 21 mg/dL (8.4-25.7); Calc. Creatinine Clearance 72 mL/min (70-130); Calcium 7.4 mg/dL (7.8-10.44); Carbon Dioxide 14 mmol/L (23-31); Chloride 120 mmol/L (98-107); Estimated GFR 42; Glucose 91 mg/dL (83-110); Magnesium 1.8 mg/dL (1.6-2.6); Phosphorus 1.5 mg/dL (2.3-4.7); Potassium 3.1 mmol/L (3.5-5.1); Sodium 142 mmol/L (136-145)
[2021-10-13] MEDS ORDERED: Magnesium 2 GM/50 ML(in water) 2 GM in Premix Bag 1 BAG IVPB SCH (15:00)
[2021-10-13] MEDS ORDERED: Potassium Phosphate 30 MMOL in Sodium Chloride 0.9% 250 ML 250 ML IVPB SCH (16:30)
[2021-10-13 18:10] LABS: Anion Gap 9 mmol/L (10-20); BUN (Urea Nitrogen) 20 mg/dL (8.4-25.7); Calc. Creatinine Clearance 75 mL/min (70-130); Calcium 7.3 mg/dL (7.8-10.44); Carbon Dioxide 15 mmol/L (23-31); Chloride 120 mmol/L (98-107); Estimated GFR 45; Glucose 94 mg/dL (83-110); Magnesium 2.1 mg/dL (1.6-2.6); Potassium 3.2 mmol/L (3.5-5.1); Sodium 141 mmol/L (136-145)
[2021-10-13 18:12] LABS: Phosphorus 1.5 mg/dL (2.3-4.7)
[2021-10-13] MEDS: Rosuvastatin 20 MG TAB PO SCH ×2 (20:48→21:44)
[2021-10-13 21:04] LABS: ALT (SGPT) 66 U/L (8-55); AST (SGOT) 40 U/L (5-34); Albumin 2.4 g/dL (3.4-4.8); Alkaline Phosphatase 216 U/L (40-110); Anion Gap 10 mmol/L (10-20); BUN (Urea Nitrogen) 18 mg/dL (8.4-25.7); Bilirubin, Total 1.1 mg/dL (0.2-1.2); Calc. Creatinine Clearance 77 mL/min (70-130); Calcium 7.5 mg/dL (7.8-10.44); Carbon Dioxide 14 mmol/L (23-31); Chloride 119 mmol/L (98-107); Estimated GFR 46; Globulin 2.4 g/dL (2.4-3.5); Glucose 64 mg/dL (83-110); Potassium 3.2 mmol/L (3.5-5.1); Protein, Total 4.8 g/dL (5.8-8.1); Sodium 140 mmol/L (136-145)
[2021-10-13 22:55] LABS: Magnesium 2.1 mg/dL (1.6-2.6)
[2021-10-13 22:57] LABS: Phosphorus 1.8 mg/dL (2.3-4.7)
[2021-10-14 01:52] LABS: ALT (SGPT) 57 U/L (8-55); AST (SGOT) 34 U/L (5-34); Albumin 2.3 g/dL (3.4-4.8); Alkaline Phosphatase 211 U/L (40-110); Anion Gap 10 mmol/L (10-20); BUN (Urea Nitrogen) 17 mg/dL (8.4-25.7); Bilirubin, Total 1.1 mg/dL (0.2-1.2); Calc. Creatinine Clearance 83 mL/min (70-130); Calcium 7.2 mg/dL (7.8-10.44); Carbon Dioxide 15 mmol/L (23-31); Chloride 122 mmol/L (98-107); Estimated GFR 50; Globulin 2.1 g/dL (2.4-3.5); Glucose 141 mg/dL (83-110); Potassium 3.9 mmol/L (3.5-5.1); Protein, Total 4.4 g/dL (5.8-8.1); Sodium 143 mmol/L (136-145)
[2021-10-14 04:20] LABS: #Eosinphils 0.3 10x3/uL (0.0-0.5); #Monocytes 0.5 10x3/uL (0.0-1.1); #Neutrophils 3.4 10x3/uL (1.5-8.4); %Basophils 0.6 % (0.0-2.0); %Eosinophils 5.3 % (0.0-6.0); %Lymphocytes 20.2 % (18.0-47.0); %Monocytes 9.4 % (0.0-10.0); %Neutrophils 63.6 % (40.0-75.0); Hemoglobin 10.7 g/dL (13.5-17.5); Mean Corpuscular HGB CONC 33.8 g/dL (32.0-36.0); Mean Corpuscular Hemoglobin 27.2 pg (27.0-33.0); Mean Corpuscular Volume 80.7 fl (81.2-95.1); Mean Platelet Volume 10.8 fl (7.4-10.4); Platelet Count 166 10x3/uL (150-450); RBC Distribution Width 18.3 % (11.5-14.5); Red Blood Cell (RBC) Count 3.93 10x6/uL (4.32-5.72); White Blood Cell (WBC) Count 5.3 10x3/uL (3.5-10.5)
[2021-10-14 04:30] LABS: Anion Gap 10 mmol/L (10-20); BUN (Urea Nitrogen) 15 mg/dL (8.4-25.7); Calc. Creatinine Clearance 83 mL/min (70-130); Calcium 7.2 mg/dL (7.8-10.44); Carbon Dioxide 15 mmol/L (23-31); Chloride 123 mmol/L (98-107); Estimated GFR 50; Glucose 157 mg/dL (83-110); Potassium 4.3 mmol/L (3.5-5.1); Sodium 144 mmol/L (136-145)
[2021-10-14] MEDS ORDERED: Potassium Phosphate 15 MMOL in Sodium Chloride 0.9% 100 ML IVPB SCH (04:45)
[2021-10-14] MEDS: Acetaminophen 325 MG TAB PO PRN ×2 (05:06→12:24)
[2021-10-14] MEDS: D5 LR w/20 mEq KCL 1,000 ML IV SCH ×3 (05:35→16:40)
[2021-10-14] MEDS ORDERED: Magnesium 2 GM/50 ML BAG (IN WATER) ONE (09:20)
[2021-10-14] MEDS ORDERED: PROPOFOL 20 ML ONE (10:18)
[2021-10-14] MEDS: Potassium Chloride 8 MEQ TAB PO SCH (11:54)
[2021-10-14] MEDS: Tamsulosin HCl 0.4 MG CAP PO SCH (11:54)
[2021-10-14] MEDS: Pantoprazole 40 MG VIAL IVP SCH (11:55)
[2021-10-14] MEDS: Apixaban 5 MG TAB PO SCH ×2 (11:55→20:18)
[2021-10-14] MEDS: Clopidogrel Bisulfate 75 MG TAB PO SCH (11:55)
[2021-10-14] MEDS: Bupropion 150 MG XL TAB PO SCH (11:55)
[2021-10-14] MEDS: Carvedilol 12.5 MG TAB PO SCH ×2 (11:57→18:09)
[2021-10-14] MEDS ORDERED: HumaLOG 300 UNITS/3 ML VIAL SC PRN (11:59)
[2021-10-14] MEDS ORDERED: Dextrose 50% Abboject 50 ML SYRINGE SLOW IVP PRN (11:59)
[2021-10-14] MEDS ORDERED: Dextrose 5% in Water 1,000 ML IV PRN (11:59)
[2021-10-14] MEDS: Amiodarone 200 MG TAB PO SCH (12:01)
[2021-10-14 14:46] LABS: Hemoglobin A1c 6.1 % (4.0-6.0)
[2021-10-14] MEDS: HYDROcodone/Acetaminophen 5/325 mg Tablet PO PRN (15:44)
[2021-10-14] MEDS: Rosuvastatin 20 MG TAB PO SCH (20:17)
[2021-10-14] MEDS ORDERED: D5 LR w/20 mEq KCL 1,000 ML IV SCH (23:30)
[2021-10-15] MEDS: Pantoprazole 40 MG VIAL IVP SCH (08:17)
[2021-10-15] MEDS: Bupropion 150 MG XL TAB PO SCH (08:18)
[2021-10-15] MEDS: Clopidogrel Bisulfate 75 MG TAB PO SCH (08:18)
[2021-10-15] MEDS: Amiodarone 200 MG TAB PO SCH (08:18)
[2021-10-15] MEDS: Carvedilol 12.5 MG TAB PO SCH ×2 (08:18→08:46)
[2021-10-15] MEDS: Tamsulosin HCl 0.4 MG CAP PO SCH (08:18)
[2021-10-15] MEDS: Potassium Chloride 8 MEQ TAB PO SCH (08:18)
[2021-10-15] MEDS: Apixaban 5 MG TAB PO SCH ×2 (08:18→21:58)
[2021-10-15] MEDS: Rosuvastatin 20 MG TAB PO SCH (21:58)
[2021-10-16] MEDS: Clopidogrel Bisulfate 75 MG TAB PO SCH (09:30)
[2021-10-16] MEDS: Bupropion 150 MG XL TAB PO SCH (09:30)
[2021-10-16] MEDS: Potassium Chloride 8 MEQ TAB PO SCH (09:30)
[2021-10-16] MEDS: Tamsulosin HCl 0.4 MG CAP PO SCH (09:30)
[2021-10-16] MEDS: Pantoprazole 40 MG VIAL IVP SCH (09:30)
[2021-10-16] MEDS: Amiodarone 200 MG TAB PO SCH (09:30)
[2021-10-16] MEDS: Apixaban 5 MG TAB PO SCH ×2 (09:30→21:39)
[2021-10-16] MEDS: Rosuvastatin 20 MG TAB PO SCH (21:39)
[2021-10-17] MEDS: Pantoprazole 40 MG VIAL IVP SCH (08:45)
[2021-10-17] MEDS: Bupropion 150 MG XL TAB PO SCH (08:45)
[2021-10-17] MEDS: Amiodarone 200 MG TAB PO SCH (08:46)
[2021-10-17] MEDS: Clopidogrel Bisulfate 75 MG TAB PO SCH (08:46)
[2021-10-17] MEDS: Tamsulosin HCl 0.4 MG CAP PO SCH (08:46)
[2021-10-17] MEDS: Apixaban 5 MG TAB PO SCH ×2 (08:46→20:39)
[2021-10-17] MEDS: Potassium Chloride 8 MEQ TAB PO SCH (08:47)
[2021-10-17] MEDS: HYDROcodone/Acetaminophen 5/325 mg Tablet PO PRN (12:28)
[2021-10-17] MEDS: Rosuvastatin 20 MG TAB PO SCH (20:39)
[2021-10-18] MEDS: Potassium Chloride 8 MEQ TAB PO SCH (08:22)
[2021-10-18] MEDS: Bupropion 150 MG XL TAB PO SCH (08:22)
[2021-10-18] MEDS: HYDROcodone/Acetaminophen 5/325 mg Tablet PO PRN (08:22)
[2021-10-18] MEDS: Apixaban 5 MG TAB PO SCH (08:22)
[2021-10-18] MEDS: Amiodarone 200 MG TAB PO SCH (08:22)
[2021-10-18] MEDS: Pantoprazole 40 MG VIAL IVP SCH (08:22)
[2021-10-18] MEDS: Clopidogrel Bisulfate 75 MG TAB PO SCH (08:22)
[2021-10-18] MEDS: Tamsulosin HCl 0.4 MG CAP PO SCH (08:23)
[2021-10-18 10:25] VITALS: BMI 43.9
[2021-10-18 10:56] LABS: Anion Gap 11 mmol/L (10-20); BUN (Urea Nitrogen) 8 mg/dL (8.4-25.7); Calc. Creatinine Clearance 121 mL/min (70-130); Calcium 7.7 mg/dL (7.8-10.44); Carbon Dioxide 18 mmol/L (23-31); Chloride 113 mmol/L (98-107); Estimated GFR 72; Glucose 137 mg/dL (83-110); Magnesium 1.5 mg/dL (1.6-2.6); Potassium 3.9 mmol/L (3.5-5.1); Sodium 138 mmol/L (136-145)
[2021-10-18] MEDS ORDERED: Lorazepam 1 MG TAB PO PRN (12:29)
[2021-10-18] MEDS ORDERED: Magnesium 2 GM/50 ML(in water) 2 GM in Premix Bag 1 BAG IVPB SCH (13:45)
[2021-10-18] MEDS ORDERED: Potassium Chloride 20 MEQ TAB PO SCH (13:45)
[2021-10-18 16:44] VITALS: BP 126/74; TEMP 97.1
== END 2021-10-18 16:50 | disposition home or self-care (01) | DRG 638 ==
LOC: CSHERS 00:33 → CSHICU 04:57 → CSHTELE 10-15 17:25
PROVIDERS: ADMIT Family Medicine; ATTEND Hospitalist
PROC: 5A2204Z Restoration of Cardiac Rhythm, Single (ICD-10-PCS; principal; 2021-10-14)
DX: E11.10 Type 2 diabetes mellitus with ketoacidosis without coma (principal); I13.0 Hypertensive heart and chronic kidney disease with heart failure and stage 1 through stage 4 chronic kidney disease, or unspecified chronic kidney disease; I42.9 Cardiomyopathy, unspecified; I50.42 Chronic combined systolic (congestive) and diastolic (congestive) heart failure; N17.9 Acute kidney failure, unspecified; N18.9 Chronic kidney disease, unspecified; E11.22 Type 2 diabetes mellitus with diabetic chronic kidney disease; E78.5 Hyperlipidemia, unspecified; I25.10 Atherosclerotic heart disease of native coronary artery without angina pectoris; N40.0 Benign prostatic hyperplasia without lower urinary tract symptoms; E66.9 Obesity, unspecified; Z74.09 Other reduced mobility; E86.0 Dehydration; L89.159 Pressure ulcer of sacral region, unspecified stage; E87.6 Hypokalemia; E78.2 Mixed hyperlipidemia; E66.01 Morbid (severe) obesity due to excess calories; E11.65 Type 2 diabetes mellitus with hyperglycemia; I48.0 Paroxysmal atrial fibrillation; R53.81 Other malaise; L89.229 Pressure ulcer of left hip, unspecified stage; L89.219 Pressure ulcer of right hip, unspecified stage; I49.5 Sick sinus syndrome; Z20.822 Contact with and (suspected) exposure to COVID-19; Z96.643 Presence of artificial hip joint, bilateral; Z83.3 Family history of diabetes mellitus; Z91.19 Patient's noncompliance with other medical treatment and regimen; Z74.01 Bed confinement status; Z98.890 Other specified postprocedural states; Z90.89 Acquired absence of other organs; Z99.3 Dependence on wheelchair; Z88.8 Allergy status to other drugs, medicaments and biological substances; Z91.010 Allergy to peanuts; Z79.4 Long term (current) use of insulin; Z79.01 Long term (current) use of anticoagulants; Z79.899 Other long term (current) drug therapy; Z95.5 Presence of coronary angioplasty implant and graft; Z82.49 Family history of ischemic heart disease and other diseases of the circulatory system
CPT/HCPCS: 36415; 36416; 51701; 70450; 71045; 80048; 80053; 81003; 81015; 82010; 82805; 83036; 83605; 83735; 84100; 84484; 85025; 87040; 87086; 92960; 93005; 93010; 93306; 94760; 96361; 96365; 96367; 97139; C9113; J0692; J1815; J2405; J2704; J3475; J3480; J3490; J7050; U0002

== ENCOUNTER 2021-10-19 11:14 | Emergency (ER) | payer OTHER ==
[2021-10-19] MEDS ORDERED: Morphine 4 MG/ML VIAL ONE (12:00)
[2021-10-19 12:27] LABS: #Basophils 0.1 10x3/uL (0.0-0.2); #Eosinphils 0.4 10x3/uL (0.0-0.5); #Monocytes 0.7 10x3/uL (0.0-1.1); #Neutrophils 7.3 10x3/uL (1.5-8.4); %Basophils 0.5 % (0.0-2.0); %Eosinophils 4.4 % (0.0-6.0); %Lymphocytes 11.4 % (18.0-47.0); %Monocytes 7.2 % (0.0-10.0); %Neutrophils 75.7 % (40.0-75.0); Hemoglobin 11.9 g/dL (13.5-17.5); Mean Corpuscular HGB CONC 32.5 g/dL (32.0-36.0); Mean Corpuscular Volume 86.1 fl (81.2-95.1); Platelet Count 248 10x3/uL (150-450); RBC Distribution Width 20.3 % (11.5-14.5); Red Blood Cell (RBC) Count 4.25 10x6/uL (4.32-5.72); White Blood Cell (WBC) Count 9.7 10x3/uL (3.5-10.5)
[2021-10-19 13:02] LABS: ALT (SGPT) 45 U/L (8-55); AST (SGOT) 25 U/L (5-34); Albumin 2.7 g/dL (3.4-4.8); Alkaline Phosphatase 190 U/L (40-110); Anion Gap 13 mmol/L (10-20); BUN (Urea Nitrogen) 8 mg/dL (8.4-25.7); Bilirubin, Total 1.4 mg/dL (0.2-1.2); CK (CPK) 86 U/L (30-200); Calc. Creatinine Clearance 0 mL/min (70-130); Calcium 7.8 mg/dL (7.8-10.44); Carbon Dioxide 18 mmol/L (23-31); Chloride 110 mmol/L (98-107); Estimated GFR 74; Globulin 2.7 g/dL (2.4-3.5); Glucose 113 mg/dL (83-110); Potassium 3.6 mmol/L (3.5-5.1); Protein, Total 5.4 g/dL (5.8-8.1); Sodium 137 mmol/L (136-145)
== END 2021-10-19 16:27 | disposition home or self-care (01) ==
LOC: CSHERS 11:14
DX: M25.552 Pain in left hip (principal); E11.9 Type 2 diabetes mellitus without complications; I11.0 Hypertensive heart disease with heart failure; I50.9 Heart failure, unspecified; E78.5 Hyperlipidemia, unspecified; W19.XXXA Unspecified fall, initial encounter
CPT/HCPCS: 36415; 72170; 80053; 82550; 85025; 96372; J2270

== ENCOUNTER 2021-11-17 21:49 | Observation (INO) | payer MEDICARE, OTHER ==
[2021-11-17 23:35] LABS: #Basophils 0.1 10x3/uL (0.0-0.2); #Eosinphils 0.4 10x3/uL (0.0-0.5); #Monocytes 0.6 10x3/uL (0.0-1.1); #Neutrophils 4.5 10x3/uL (1.5-8.4); %Eosinophils 5.7 % (0.0-6.0); %Lymphocytes 21.2 % (18.0-47.0); %Monocytes 7.8 % (0.0-10.0); Hemoglobin 10.2 g/dL (13.5-17.5); Mean Corpuscular HGB CONC 32.7 g/dL (32.0-36.0); Mean Corpuscular Hemoglobin 28.8 pg (27.0-33.0); Mean Corpuscular Volume 88.1 fl (81.2-95.1); Mean Platelet Volume 9.8 fl (7.4-10.4); Platelet Count 227 10x3/uL (150-450); RBC Distribution Width 18.6 % (11.5-14.5); Red Blood Cell (RBC) Count 3.54 10x6/uL (4.32-5.72)
[2021-11-17 23:48] LABS: ALT (SGPT) 16 U/L (8-55); AST (SGOT) 21 U/L (5-34); Alkaline Phosphatase 118 U/L (40-110); Anion Gap 15 mmol/L (10-20); BUN (Urea Nitrogen) 22 mg/dL (8.4-25.7); Bilirubin, Total 0.7 mg/dL (0.2-1.2); Calc. Creatinine Clearance 0 mL/min (70-130); Calcium 7.6 mg/dL (7.8-10.44); Carbon Dioxide 24 mmol/L (23-31); Chloride 97 mmol/L (98-107); Estimated GFR 45; Globulin 2.7 g/dL (2.4-3.5); Glucose 199 mg/dL (83-110); Potassium 3.8 mmol/L (3.5-5.1); Protein, Total 5.7 g/dL (5.8-8.1); Sodium 132 mmol/L (136-145)
[2021-11-18] MEDS ORDERED: Dextrose 50% Abboject 50 ML SYRINGE SLOW IVP PRN (01:53)
[2021-11-18] MEDS ORDERED: Dextrose 5% in Water 1,000 ML IV PRN (01:53)
[2021-11-18 01:59] LABS: Magnesium 1.6 mg/dL (1.6-2.6)
[2021-11-18] MEDS ORDERED: Magnesium 2 GM/50 ML(in water) 2 GM in Premix Bag 1 BAG IVPB SCH (03:00)
[2021-11-18 03:33] VITALS: BMI 38.5
[2021-11-18] MEDS: Sodium Chloride 0.9% 1,000 ML IV SCH ×2 (04:25→16:20)
[2021-11-18] MEDS: HumaLOG 300 UNITS/3 ML VIAL SC PRN ×2 (06:11→12:15)
[2021-11-18 06:14] LABS: Anion Gap 15 mmol/L (10-20); BUN (Urea Nitrogen) 22 mg/dL (8.4-25.7); Calc. Creatinine Clearance 82 mL/min (70-130); Carbon Dioxide 24 mmol/L (23-31); Chloride 101 mmol/L (98-107); Estimated GFR 54; Glucose 268 mg/dL (83-110); Potassium 3.5 mmol/L (3.5-5.1); Sodium 136 mmol/L (136-145)
[2021-11-18] MEDS ORDERED: metFORMIN 500 MG TAB PO SCH (07:30)
[2021-11-18] MEDS ORDERED: Potassium Chloride 20 MEQ TAB PO SCH (08:00)
[2021-11-18] MEDS ORDERED: Ezetimibe 10 MG TAB PO SCH (09:00)
[2021-11-18] MEDS ORDERED: Pramipexole Di-HCl 0.25 MG TAB PO SCH (09:00)
[2021-11-18] MEDS ORDERED: DULoxetine 30 MG CAP PO SCH (09:00)
[2021-11-18] MEDS ORDERED: Furosemide 40 MG TAB PO SCH (09:00)
[2021-11-18] MEDS ORDERED: Losartan Potassium 50 MG TAB PO SCH (09:00)
[2021-11-18] MEDS ORDERED: Nystatin Powder 15 GM BOT TOP SCH (09:00)
[2021-11-18] MEDS ORDERED: Spironolactone 25 MG TAB PO SCH (09:00)
[2021-11-18] MEDS ORDERED: Clopidogrel Bisulfate 75 MG TAB PO SCH (09:00)
[2021-11-18] MEDS ORDERED: Amiodarone 200 MG TAB PO SCH (09:00)
[2021-11-18] MEDS ORDERED: Apixaban 5 MG TAB PO SCH (09:00)
[2021-11-18] MEDS: Gabapentin 100 MG CAP PO SCH ×2 (09:51→16:20)
[2021-11-18] MEDS: Cephalexin 500 MG CAP PO SCH ×3 (09:51→16:20)
[2021-11-18] MEDS: Carvedilol 12.5 MG TAB PO SCH ×2 (09:52→16:20)
[2021-11-18] MEDS ORDERED: HYDROcodone/Acetaminophen 5/325 mg Tablet PO PRN (09:56)
[2021-11-18 17:20] VITALS: BP 131/60; TEMP 95.5
[2021-11-18] MEDS ORDERED: Tamsulosin HCl 0.4 MG CAP PO SCH (21:00)
[2021-11-18] MEDS ORDERED: Rosuvastatin 20 MG TAB PO SCH (21:00)
== END 2021-11-18 16:45 | disposition home or self-care (01) ==
LOC: CSHERS 21:49 → CSHTELE 11-18 02:41 → INTOOBSV 11-18 02:41
PROVIDERS: ADMIT Family Medicine; ATTEND Internal Medicine
DX: R53.1 Weakness (principal); R29.6 Repeated falls; E11.10 Type 2 diabetes mellitus with ketoacidosis without coma; I48.0 Paroxysmal atrial fibrillation; I13.0 Hypertensive heart and chronic kidney disease with heart failure and stage 1 through stage 4 chronic kidney disease, or unspecified chronic kidney disease; I50.42 Chronic combined systolic (congestive) and diastolic (congestive) heart failure; E11.52 Type 2 diabetes mellitus with diabetic peripheral angiopathy with gangrene; N18.9 Chronic kidney disease, unspecified; E11.59 Type 2 diabetes mellitus with other circulatory complications; N17.9 Acute kidney failure, unspecified; N40.0 Benign prostatic hyperplasia without lower urinary tract symptoms; I25.10 Atherosclerotic heart disease of native coronary artery without angina pectoris; E78.5 Hyperlipidemia, unspecified; R19.7 Diarrhea, unspecified; G25.81 Restless legs syndrome; I45.10 Unspecified right bundle-branch block; I44.4 Left anterior fascicular block; M17.0 Bilateral primary osteoarthritis of knee; M16.0 Bilateral primary osteoarthritis of hip; E66.01 Morbid (severe) obesity due to excess calories; Z68.38 Body mass index [BMI] 38.0-38.9, adult; Z74.09 Other reduced mobility; Z20.822 Contact with and (suspected) exposure to COVID-19; Z79.01 Long term (current) use of anticoagulants; Z79.02 Long term (current) use of antithrombotics/antiplatelets; Z79.84 Long term (current) use of oral hypoglycemic drugs; Z79.899 Other long term (current) drug therapy; Z88.8 Allergy status to other drugs, medicaments and biological substances; Z91.010 Allergy to peanuts; Z96.643 Presence of artificial hip joint, bilateral; W19.XXXA Unspecified fall, initial encounter
CPT/HCPCS: 70450; 80048; 80053; 82962; 83605; 83735; 83880; 84484; 85025; 93005; 96374; 97530; 97535; 99285; G0378 ×2; U0003; U0005; 36415; 36416; J1815; J3475; J7050

== ENCOUNTER 2021-11-19 20:33 | Emergency (ER) | payer MEDICARE ==
[2021-11-19 21:21] LABS: #Basophils 0.1 10x3/uL (0.0-0.2); #Eosinphils 0.6 10x3/uL (0.0-0.5); #Monocytes 0.5 10x3/uL (0.0-1.1); #Neutrophils 5.8 10x3/uL (1.5-8.4); %Basophils 1.1 % (0.0-2.0); %Eosinophils 6.6 % (0.0-6.0); %Lymphocytes 15.8 % (18.0-47.0); %Monocytes 6.2 % (0.0-10.0); %Neutrophils 69.7 % (40.0-75.0); Hemoglobin 9.9 g/dL (13.5-17.5); Mean Corpuscular HGB CONC 32.9 g/dL (32.0-36.0); Mean Corpuscular Hemoglobin 29.6 pg (27.0-33.0); Mean Corpuscular Volume 89.9 fl (81.2-95.1); Mean Platelet Volume 9.6 fl (7.4-10.4); Platelet Count 234 10x3/uL (150-450); RBC Distribution Width 18.7 % (11.5-14.5); Red Blood Cell (RBC) Count 3.35 10x6/uL (4.32-5.72); White Blood Cell (WBC) Count 8.4 10x3/uL (3.5-10.5)
[2021-11-19 21:30] LABS: ALT (SGPT) 17 U/L (8-55); AST (SGOT) 17 U/L (5-34); Albumin 3.1 g/dL (3.4-4.8); Alkaline Phosphatase 130 U/L (40-110); Anion Gap 11 mmol/L (10-20); BUN (Urea Nitrogen) 24 mg/dL (8.4-25.7); Bilirubin, Total 0.5 mg/dL (0.2-1.2); CK (CPK) 27 U/L (30-200); Calc. Creatinine Clearance 0 mL/min (70-130); Calcium 8.3 mg/dL (7.8-10.44); Carbon Dioxide 26 mmol/L (23-31); Chloride 99 mmol/L (98-107); Estimated GFR 51; Globulin 3.1 g/dL (2.4-3.5); Glucose 172 mg/dL (83-110); Lipase 119 U/L (8-78); Potassium 4.4 mmol/L (3.5-5.1); Protein, Total 6.2 g/dL (5.8-8.1); Sodium 132 mmol/L (136-145)
[2021-11-19] MEDS ORDERED: Loperamide HCl 2 MG CAP ONE (22:21)
== END 2021-11-19 23:22 | disposition home or self-care (01) ==
LOC: CSHERS 20:33
DX: R53.1 Weakness (principal); R19.7 Diarrhea, unspecified; E11.9 Type 2 diabetes mellitus without complications; I11.0 Hypertensive heart disease with heart failure; I50.9 Heart failure, unspecified; I48.91 Unspecified atrial fibrillation; E78.5 Hyperlipidemia, unspecified
CPT/HCPCS: 80053; 82550; 83605; 83690; 85025; 93005; 96360; 96361

== ENCOUNTER 2021-11-28 19:44 | Emergency (ER) | payer MEDICARE ==
[2021-11-28 20:42] LABS: ALT (SGPT) 10 U/L (8-55); AST (SGOT) 12 U/L (5-34); Albumin 3.3 g/dL (3.4-4.8); Alkaline Phosphatase 113 U/L (40-110); Anion Gap 12 mmol/L (10-20); BUN (Urea Nitrogen) 20 mg/dL (8.4-25.7); Bilirubin, Total 0.6 mg/dL (0.2-1.2); Calc. Creatinine Clearance 0 mL/min (70-130); Calcium 8.6 mg/dL (7.8-10.44); Carbon Dioxide 27 mmol/L (23-31); Chloride 99 mmol/L (98-107); Estimated GFR 69; Globulin 3.1 g/dL (2.4-3.5); Glucose 311 mg/dL (83-110); Protein, Total 6.4 g/dL (5.8-8.1); Sodium 134 mmol/L (136-145)
[2021-11-28 20:44] LABS: #Basophils 0.1 10x3/uL (0.0-0.2); #Eosinphils 0.7 10x3/uL (0.0-0.5); #Monocytes 0.4 10x3/uL (0.0-1.1); #Neutrophils 4.4 10x3/uL (1.5-8.4); %Basophils 0.9 % (0.0-2.0); %Eosinophils 10.2 % (0.0-6.0); %Lymphocytes 14.8 % (18.0-47.0); %Monocytes 6.4 % (0.0-10.0); %Neutrophils 67.4 % (40.0-75.0); Mean Corpuscular HGB CONC 32.2 g/dL (32.0-36.0); Mean Corpuscular Hemoglobin 29.4 pg (27.0-33.0); Mean Corpuscular Volume 91.5 fl (81.2-95.1); Platelet Count 206 10x3/uL (150-450); RBC Distribution Width 18.2 % (11.5-14.5); White Blood Cell (WBC) Count 6.6 10x3/uL (3.5-10.5)
[2021-11-28] MEDS ORDERED: Ibuprofen 200 MG TAB ONE (21:53)
== END 2021-11-28 21:52 | disposition home or self-care (01) ==
LOC: CSHERS 19:44
DX: R53.1 Weakness (principal); E11.9 Type 2 diabetes mellitus without complications; I50.9 Heart failure, unspecified; I48.91 Unspecified atrial fibrillation; E78.5 Hyperlipidemia, unspecified; I10 Essential (primary) hypertension
CPT/HCPCS: 70450; 80053; 85025

== ENCOUNTER 2023-08-28 23:15 | Inpatient (IN) | payer MEDICARE ==
[2023-08-29 00:38] VITALS: BMI 53.8
[2023-08-29 01:25] LABS: Magnesium 1.8 mg/dL (1.6-2.6)
[2023-08-29 01:37] LABS: Troponin I 0.026 ng/mL (< 0.028)
[2023-08-29 04:36] LABS: #Basophils 0.04 10x3/uL (0.0-0.2); #Eosinphils 0.28 10x3/uL (0.0-0.5); #Neutrophils 4.11 10x3/uL (1.5-8.4); %Basophils 0.7 % (0.0-2.0); %Eosinophils 4.7 % (0.0-6.0); %Lymphocytes 19.9 % (18.0-47.0); %Monocytes 5.1 % (0.0-10.0); %Neutrophils 69.3 % (40.0-75.0); Mean Corpuscular HGB CONC 30.3 g/dL (32.0-36.0); Mean Corpuscular Hemoglobin 22.6 pg (27.0-33.0); Mean Corpuscular Volume 74.5 fL (81.2-95.1); Mean Platelet Volume 10.8 fL (7.4-10.4); Platelet Count 157 10x3/uL (150-450); RBC Distribution Width 18.8 % (11.5-14.5); Red Blood Cell (RBC) Count 4.43 10x6/uL (4.32-5.72); White Blood Cell (WBC) Count 5.9 10x3/uL (3.5-10.5)
[2023-08-29 04:50] LABS: Iron 19 ug/dL (65-175); Iron Binding Capacity, Total 360 mcg/dL (261-462)
[2023-08-29 05:01] LABS: Anisocytosis SLIGHT = 6-15 cells (100X) (0-5/hpf); Elliptocytes SLIGHT = 2-5 cells (100X) (0-1/hpf); Hypochromia SLIGHT = 6-15 cells (100X) (0-5/hpf); Microcytosis SLIGHT = 6-15 cells (100X) (0-5/hpf); Ovalocytes SLIGHT = 2-5 cells (100X) (0-1/hpf); Platelet Adequacy Comment Appears Adequate
[2023-08-29 05:06] LABS: Ferritin 51.92 ng/mL (22-322); Thyroid Stimulating Hormone 3.3278 uIU/mL (0.35-4.94)
[2023-08-29 09:07] LABS: Anion Gap 15 mmol/L (10-20); BUN (Urea Nitrogen) 37 mg/dL (8.4-25.7); Calc. Creatinine Clearance 74 mL/min (70-130); Calcium 8.3 mg/dL (7.8-10.44); Carbon Dioxide 27 mmol/L (23-31); Chloride 99 mmol/L (98-107); Estimated GFR 44; Glucose 114 mg/dL (83-110); Potassium 3.6 mmol/L (3.5-5.1); Sodium 137 mmol/L (136-145)
[2023-08-29 10:52] VITALS: BMI 41.5
[2023-08-30 04:17] LABS: Anion Gap 11 mmol/L (10-20); BUN (Urea Nitrogen) 35 mg/dL (8.4-25.7); Calc. Creatinine Clearance 71 mL/min (70-130); Calcium 8.5 mg/dL (7.8-10.44); Carbon Dioxide 31 mmol/L (23-31); Chloride 100 mmol/L (98-107); Estimated GFR 43; Glucose 159 mg/dL (83-110); Potassium 4.1 mmol/L (3.5-5.1); Sodium 138 mmol/L (136-145)
[2023-08-31 06:12] LABS: Anion Gap 13 mmol/L (10-20); BUN (Urea Nitrogen) 34 mg/dL (8.4-25.7); Carbon Dioxide 29 mmol/L (23-31); Chloride 99 mmol/L (98-107); Sodium 137 mmol/L (136-145)
[2023-08-31 06:13] LABS: Calc. Creatinine Clearance 73 mL/min (70-130); Calcium 8.2 mg/dL (7.6-10.4); Estimated GFR 46; Glucose 131 mg/dL (83-110)
[2023-08-31 13:32] VITALS: BP 109/59; TEMP 98
== END 2023-08-31 14:20 | disposition home or self-care (01) | DRG 276 ==
LOC: CSHTELE 23:15 → UNDOADMIN 23:15 → CSHTELE 08-29 00:37
PROVIDERS: ADMIT Family Medicine; ATTEND Hospitalist
PROC: B5171ZZ Fluoroscopy of Left Subclavian Vein using Low Osmolar Contrast (ICD-10-PCS; principal; 2023-08-30)
PROC: 0JH608Z Insertion of Defibrillator Generator into Chest Subcutaneous Tissue and Fascia, Open Approach (ICD-10-PCS; 2023-08-30)
PROC: 02H63KZ Insertion of Defibrillator Lead into Right Atrium, Percutaneous Approach (ICD-10-PCS; 2023-08-30)
PROC: 0JPT0PZ Removal of Cardiac Rhythm Related Device from Trunk Subcutaneous Tissue and Fascia, Open Approach (ICD-10-PCS; 2023-08-30)
PROC: 02PA3MZ Removal of Cardiac Lead from Heart, Percutaneous Approach (ICD-10-PCS; 2023-08-30)
PROC: 02HK3KZ Insertion of Defibrillator Lead into Right Ventricle, Percutaneous Approach (ICD-10-PCS; 2023-08-30)
DX: I13.0 Hypertensive heart and chronic kidney disease with heart failure and stage 1 through stage 4 chronic kidney disease, or unspecified chronic kidney disease (principal); I50.43 Acute on chronic combined systolic (congestive) and diastolic (congestive) heart failure; I45.2 Bifascicular block; N18.32 Chronic kidney disease, stage 3b; E11.22 Type 2 diabetes mellitus with diabetic chronic kidney disease; E66.01 Morbid (severe) obesity due to excess calories; D50.9 Iron deficiency anemia, unspecified; I25.10 Atherosclerotic heart disease of native coronary artery without angina pectoris; N40.0 Benign prostatic hyperplasia without lower urinary tract symptoms; I48.0 Paroxysmal atrial fibrillation; Z68.39 Body mass index [BMI] 39.0-39.9, adult; E78.2 Mixed hyperlipidemia; Z88.8 Allergy status to other drugs, medicaments and biological substances; Z91.010 Allergy to peanuts; Z79.01 Long term (current) use of anticoagulants; Z79.899 Other long term (current) drug therapy; Z79.82 Long term (current) use of aspirin; I49.5 Sick sinus syndrome; I44.0 Atrioventricular block, first degree; I25.5 Ischemic cardiomyopathy; E11.59 Type 2 diabetes mellitus with other circulatory complications; Z95.5 Presence of coronary angioplasty implant and graft; Z90.89 Acquired absence of other organs
CPT/HCPCS: 0439T; 33215; 33222; 33225; 33233; 33234; 33249; 36005; 36415; 36416; 71045; 75820; 80048; 82728; 83540; 83550; 83735; 84443; 84484; 85025; 93005; 93010; 97139; C1763; C1769; C1777; C1882; C1900; J0690; J1580; J1650; J1940; J2001; J2250; J3010; J3370; J3475; Q9957; Q9967